=== PATIENT | female | born 1970 | race Caucasian/White ===

== ENCOUNTER 2018-04-02 11:50 | Emergency (ER) | payer OTHER ==
--- OUTSIDE RECORDS SUMMARY | 2018-04-02 11:52 | XMS REPORT ---
:1970 [facility] Address [address] [place] [address] Dr. Alonzo [address] [place] [id number] Care Team Providers Name Role Phone Unavailable Unavailable Unavailable Problems This patient has no known problems. Allergies, Adverse Reactions, Alerts This patient has no known allergies or adverse reactions. Medications This patient has no known medications.
[2018-04-02] MEDS ORDERED: NA CHLORIDE 0.9% 500 ML ONE (12:37)
[2018-04-02] MEDS ORDERED: ONDANSETRON 4 MG/2 ML VIAL ONE (12:37)
[2018-04-02 13:10] LABS: Absolute Lymphocytes (CBC) 1.9 K/uL (0.7-4.9); Absolute Monocytes 0.4 K/uL (0.1-1.3); Basophils % 0.2 % (0-1.3); Eosinophils % 0.2 % (0-4.4); Hematocrit 43.6 % (36.0-45.0); Lymphocytes % 22.8 % (15.3-44.8); MPV 7.9 fL (7.6-11.3); Monocytes % 4.4 % (3.3-12.3); RBC Red Blood Cell Count 5.05 M/uL (3.86-4.86)
[2018-04-02] MEDS ORDERED: PROMETHAZINE 25 MG/ML VIAL ONE (13:33)
[2018-04-02 13:42] LABS: ALT/SGPT 24 U/L (12-78); AST/SGOT 22 U/L (15-37); Albumin 4.7 g/dL (3.4-5.0); Alkaline Phosphatase 126 U/L (45-117); BUN Blood Urea Nitrogen 8 mg/dL (7-18); Bicarbonate 26 mmol/L (21-32); Bilirubin Direct < 0.1 mg/dL (0-0.2); Bilirubin Total 0.3 mg/dL (0.2-1.0); Glucose Level 109 mg/dL (74-106); Lipase 71 U/L (73-393); Potassium 4.4 mmol/L (3.5-5.1); Protein, Total 8.6 g/dL (6.4-8.2); Sodium Level 139 mmol/L (136-145)
[2018-04-02 14:21] LABS: Urine Blood TRACE (NEG); Urine Glucose NEGATIVE (NEG); Urine Protein NEGATIVE (NEG); Urine Specific Gravity 1.015 (1.005-1.030)
--- NOTE | 2018-04-02 15:37 | RAD REPORT ---
EXAM DESCRIPTION: CT - Abdomen Pelvis Wo Contrast - 04/02/2018 3:02 pm CLINICAL HISTORY: Abdominal pain. Abd pain;Constipation;Nausea / vomiting COMPARISON: CT ABD PELVIS W CONTRAST dated 10/16/2011; CTANGIO CHEST FOR PE dated 01/06/2010; CT ABD PELVIS W WO CONTRAST dated 02/27/2010 TECHNIQUE: CT imaging of the abdomen and pelvis was performed without contrast. Solid organ and vasc ular assessment is limited due to lack of IV contrast. All CT scans are performed using dose optimization technique as appropriate and may include automated exposure control or mA/KV adjustment according to patient size. FINDINGS: 8 mm noncalcified nodule partially visualized is present in the left lung base. Small subp leural 2 mm nodule also present left base laterally. The liver, spleen, pancreas, adrenal glands and kidneys are within normal limits for a limited non-co ntrast examination.Cholecystectomy clips. No bowel obstruction, free air, free fluid or abscess. 2.9 cm rounded soft tissue lesion is seen the base of the cecum. The appendix is absent. The osseous structures are within normal limits. IMPRESSION: No acute intra-abdominal or pelvic findings. 2.9 cm rounded soft tissue lesion at the base of the cecum noted. Advise followup direct visualizatio n with colonoscopy. Tiny nodules are seen in the lung bases, incompletely assessed. Dedicated nonemergent CT chest follow up would be helpful. A limited non-contrast examination was performed as detailed.
--- NOTE | 2018-04-02 15:44 | ER ---
Nurse's Notes [facility] Name: Deann Avitia Age: 47 yrs Sex: Female : 1970 Arrival Date: 04/02/2018 Time: 11:53 Bed 7 Private MD: Judy Canales Diagnosis: Unspecified abdominal pain Presentation: 04/02 12:02 Presenting complaint: Patient states: Upper abdominal pain for 8 months with nausea and aj "dry heaves". Patient reports she is able to hold down food and liquids. Patient has seen TILE TRIMMER, Urology, and had appointment with GI today at 1300 but felt that she could not wait. Transition of care: patient was not received from another setting of care. Onset of symptoms was July 2017. Risk Assessment: Do you want to hurt yourself or someone else? Patient reports no desire to harm self or others. Initial Sepsis Screen: Does the patient meet any 2 criteria? No. Patient's initial sepsis screen is negative. Does the patient have a suspected source of infection? No. Patient's initial sepsis screen is negative. Care prior to arrival: None. 12:02 Method Of Arrival: Ambulatory 12:02 Acuity: JHONATHAN 3 aj Triage Assessment: 12:07 General: Appears in no apparent distress. comfortable, Behavior is calm, cooperative, aj appropriate for age. Pain: Complains of pain in epigastric area, right upper quadrant and left upper quadrant. Neuro: Level of Consciousness is awake, alert, obeys commands, Oriented to person, place, time, situation, Appropriate for age. Respiratory: Airway is patent Respiratory effort is even, unlabored, Respiratory pattern is regular, symmetrical. GI: Reports upper abdominal pain, nausea. Derm: Skin is intact, is healthy with good turgor, Skin is pink, warm \\T\\ dry. normal. TILE TRIMMER: 12:07 LMP N/A - Hysterectomy aj Historical: - Allergies: 12:07 Ultram; aj 12:07 Naproxen; aj 12:07 Lyrica; aj 12:07 gabapentin; aj - Home Meds: 12:07 Morphabond ER every 8 hours [Active]; Plaquenil 200 mg Oral tab 1 tab once daily aj [Active]; Mobic 15 mg oral tab 1 tab once daily [Active]; tizanidine 4 mg oral cap twice a day [Active]; Zoloft 100 mg Oral tab 1 tab once daily [Active]; Wellbutrin XL 300 mg Oral Tb24 1 tab once daily [Active]; Ambien 10 mg Oral tab 1 tab once daily [Active]; Lamictal 200 mg Oral tab 1 tab once daily [Active]; - PMHx: 12:07 Fibromyalgia; Chronic pain; aj - PSHx: 12:07 Knee surgery; Appendectomy; Cholecystectomy; Hysterectomy; aj - Immunization history:: Adult Immunizations up to date. - Social history:: Smoking status: Patient uses tobacco products, smokes one-half pack cigarettes per day. - Ebola Screening: : Patient negative for fever greater than or equal to 101.5 degrees Fahrenheit, and additional compatible Ebola Virus Disease symptoms Patient denies exposure to infectious person Patient denies travel to an Ebola-affected area in the 21 days before illness onset No symptoms or risks identified at this time. - Family history:: not pertinent. - Hospitalizations: : No recent hospitalization is reported. Screenin:45 Abuse screen: Denies threats or abuse. Denies injuries from another. Nutritional hb screening: No deficits noted. Tuberculosis screening: No symptoms or risk factors identified. Fall Risk None identified. Assessment: 12:45 General: Appears in no apparent distress. Behavior is calm, cooperative. Pain: Pain hb currently is 8 out of 10 on a pain scale. Neuro: Level of Consciousness is awake, alert, obeys commands, Oriented to person, place, time, situation. Cardiovascular: Capillary refill < 3 seconds Patient's skin is warm and dry. Respiratory: Airway is patent Respiratory effort is even, unlabored, Respiratory pattern is regular, symmetrical, Breath sounds are clear bilaterally. GI: Abdomen is obese, Bowel sounds present X 4 quads. Abd is soft X 4 quads Abdomen is tender to palpation X 4 quads. Reports lower abdominal pain, upper abdominal pain, constipation, nausea. : No signs and/or symptoms were reported regarding the genitourinary system. EENT: No signs and/or symptoms were reported regarding the EENT system. Derm: Skin is intact, is healthy with good turgor, Skin is pink, warm \\T\\ dry. Musculoskeletal: No signs and/or symptoms reported regarding the musculoskeletal system. 13:08 Reassessment: Pt c/o abdominal pain 10/05, Dr. Workman notified, no new orders at thsis hb time. 13:48 Reassessment: Pt requesting pain medication, c/o pain 10/05. Dr. Workman notified, no new hb orders at this time. 14:15 Reassessment: Patient appears in no apparent distress at this time. Patient and/or hb family updated on plan of care and expected duration. Pain level reassessed. Patient is alert, oriented x 3, equal unlabored respirations, skin warm/dry/pink. 15:30 Reassessment: Patient appears in no apparent distress at this time. Patient and/or hb family updated on plan of care and expected duration. Pain level reassessed. Patient is alert, oriented x 3, equal unlabored respirations, skin warm/dry/pink. Vital Signs: 12:07 BP 150 / 107; Pulse 115; Resp 20; Temp 97.6; Pulse Ox 96% on R/A; Weight 93.44 kg; aj Height 5 ft. 2 in. (157.48 cm); 12:07 Body Mass Index 37.68 (93.44 kg, 157.48 cm) ED Course: 11:53 Patient arrived in ED. dl4 11:53 Judy Canales MD is Private Physician. dl4 12:04 Triage completed. aj 12:07 Arm band placed on right wrist. Patient placed in an exam room. aj 12:09 Feliberto Workman MD is Attending Physician. rn 12:45 Patient has correct armband on for positive identification. Placed in gown. Bed in low hb position. Call light in reach. Side rails up X 1. 13:02 Inserted saline lock: 22 gauge in right forearm, using aseptic technique. hb 13:08 Cristela Jacobs, RN is Primary Nurse. hb 14:46 Radiology exam delayed due to IV insertion attempt and/or patient not having vm2 appropriate IV at this time. 15:03 Abdomen In Process Unspecified. EDMS 15:43 Leslye Mathis MD is Referral Physician. rn 16:16 No provider procedures requiring assistance completed. IV discontinued, intact, hb bleeding controlled, No redness/swelling at site. Pressure dressing applied. Administered Medications: 13:08 Drug: Zofran 4 mg Route: IVP; Site: right forearm; hb 13:30 Follow up: Response: No adverse reaction hb 13:09 Drug: NS 0.9% 500 ml Route: IV; Rate: bolus; Site: right forearm; hb 13:45 Follow up: Response: No adverse reaction; IV Status: Completed infusion hb Outcome: 15:44 Discharge ordered by . rn 16:16 Discharged to home ambulatory. 16:16 Condition: stable 16:16 Discharge instructions given to patient, Instructed on discharge instructions, follow up and referral plans. medication usage, Demonstrated understanding of instructions, follow-up care, medications. 16:17 Patient left the ED. Signatures: Dispatcher [employer] Rema Al, RN Feliberto Salter MD MD rn Baxter, Heather, RN RN hb McGuire, Victoria 2 Tariq Drew dl4
--- NOTE | 2018-04-02 15:45 | EDPHYS ---
Physician Documentation [facility] Name: Deann Avitia Age: 47 yrs Sex: Female : 1970 Arrival Date: 04/02/2018 Time: 11:53 Bed 7 Private MD: Judy Canales ED Physician Feliberto Workman HPI: 04/02 12:29 This 47 yrs old Female presents to ER via Ambulatory with complaints of rn Abdominal Pain. 12:29 The patient presents with abdominal pain in the lower abdomen. Onset: The rn symptoms/episode began/occurred 8 month(s) ago. The symptoms do not radiate. Associated signs and symptoms: Pertinent positives: constipation, nausea, Pertinent negatives: anorexia, blood in stools, diarrhea, fever. The symptoms are described as crampy. Modifying factors: The symptoms are alleviated by nothing, the symptoms are aggravated by nothing. Severity of pain: At its worst the pain was mild in the emergency department the pain is unchanged. The patient has experienced similar episodes in the past, chronically. Reports 8 months of lower abd pain, moves to upper abdomen, cleared by [facility] and Urology, was supposed to go see GI today, in 1 hour but states couldn't wait so came here and canceled her appt. Reports nausea and constipation. Last BM 2 days ago. Is passing gas. . 12:29 Also on chronic pain medication.. 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 LMP N/A - Hysterectomy aj Historical: - Allergies: 12:07 Ultram; aj 12:07 Naproxen; aj 12:07 Lyrica; aj 12:07 gabapentin; aj - Home Meds: 12:07 Morphabond ER every 8 hours [Active]; Plaquenil 200 mg Oral tab 1 tab once daily aj [Active]; Mobic 15 mg oral tab 1 tab once daily [Active]; tizanidine 4 mg oral cap twice a day [Active]; Zoloft 100 mg Oral tab 1 tab once daily [Active]; Wellbutrin XL 300 mg Oral Tb24 1 tab once daily [Active]; Ambien 10 mg Oral tab 1 tab once daily [Active]; Lamictal 200 mg Oral tab 1 tab once daily [Active]; - PMHx: 12:07 Fibromyalgia; Chronic pain; aj - PSHx: 12:07 Knee surgery; Appendectomy; Cholecystectomy; Hysterectomy; aj - Immunization history:: Adult Immunizations up to date. - Social history:: Smoking status: Patient uses tobacco products, smokes one-half pack cigarettes per day. - Ebola Screening: : Patient negative for fever greater than or equal to 101.5 degrees Fahrenheit, and additional compatible Ebola Virus Disease symptoms Patient denies exposure to infectious person Patient denies travel to an Ebola-affected area in the 21 days before illness onset No symptoms or risks identified at this time. - Family history:: not pertinent. - Hospitalizations: : No recent hospitalization is reported. ROS: 12:29 Constitutional: Negative for fever, chills, and weight loss, Eyes: Negative for injury, rn pain, redness, and discharge, Cardiovascular: Negative for chest pain, palpitations, and edema, Respiratory: Negative for shortness of breath, cough, wheezing, and pleuritic chest pain, Abdomen/GI: Negative for vomiting, diarrhea MS/Extremity: Negative for injury and deformity, Skin: Negative for injury, rash, and discoloration, Neuro: Negative for headache, weakness, numbness, tingling, and seizure. Exam: 12:29 Constitutional: This is a well developed, well nourished patient who is awake, alert, rn and in no acute distress. Head/Face: Normocephalic, atraumatic. ENT: dry MM, no stridor Cardiovascular: Regular rate and rhythm with a normal S1 and S2. No gallops, murmurs, or rubs. Normal PMI, no JVD. No pulse deficits. Respiratory: Lungs have equal breath sounds bilaterally, clear to auscultation and percussion. No rales, rhonchi or wheezes noted. No increased work of breathing, no retractions or nasal flaring. Abdomen/GI: soft, mild periumbilical and suprapubic tenderness, no rebound/peritoneal signs Skin: Warm, dry MS/ Extremity: Pulses equal, no cyanosis. Neurovascular intact. Full, normal range of motion. Equal circumference. Neuro: Awake and alert, GCS 15, oriented to person, place, time, and situation. Cranial nerves II-XII grossly intact. Motor strength 5/5 in all extremities. Sensory grossly intact. Vital Signs: 12:07 BP 150 / 107; Pulse 115; Resp 20; Temp 97.6; Pulse Ox 96% on R/A; Weight 93.44 kg; aj Height 5 ft. 2 in. (157.48 cm); 12:07 Body Mass Index 37.68 (93.44 kg, 157.48 cm) aj MDM: 12:09 Patient medically screened. rn 15:39 Differential diagnosis: diverticulitis, gastroesophageal reflux disease, non-specific rn abd pain, Peptic Ulcer Disease, urinary tract infection. Data reviewed: vital signs, nurses notes, lab test result(s), radiologic studies, CT scan, and as a result, I will discharge patient. Counseling: I had a detailed discussion with the patient and/or guardian regarding: the historical points, exam findings, and any diagnostic results supporting the discharge/admit diagnosis, lab results, radiology results, the need for outpatient follow up, to return to the emergency department if symptoms worsen or persist or if there are any questions or concerns that arise at home. Response to treatment: the patient's symptoms have mildly improved after treatment, and as a result, I will discharge patient. Special discussion: Based on the patient's Hx, exam, and Dx evaluation, there is no indication for emergent surgery or inpatient Tx. It is understood by the patient/guardian that if the Sx's persist or worsen they need to return immediately for re-evaluation. I discussed with the patient/guardian in detail that at this point there is no indication for admission to the hospital. It is understood, however, that if the symptoms persist or worsen the patient needs to return immediately for re-evaluation. Based on the history and exam findings, there is no indication for further emergent testing or inpatient evaluation. I discussed with the patient/guardian the need to see the marble mason for further evaluation of the symptoms. 15:45 Special discussion: I discussed with the patient the need to follow-up with the rn PCP/specialist for the noted incidental finding on X-ray/CT scanning. 04/02 12:21 Order name: Basic Metabolic Panel; Complete Time: 15:28 rn 04/02 12:21 Order name: CBC with Diff; Complete Time: 15:28 rn 04/02 12:21 Order name: Hepatic Function; Complete Time: 15:28 rn 04/02 12:21 Order name: Lipase; Complete Time: 15:28 rn 04/02 14:09 Order name: Urine Dipstick--Ancillary (enter results); Complete Time: 15:28 bd 04/02 12:21 Order name: IV Saline Lock; Complete Time: 13: rn 04/02 12:21 Order name: Labs collected and sent; Complete Time: 13: rn 04/02 14:51 Order name: Abdomen ; Complete Time: 15:39 EDMS Administered Medications: 13:08 Drug: Zofran 4 mg Route: IVP; Site: right forearm; hb 13:30 Follow up: Response: No adverse reaction hb 13:09 Drug: NS 0.9% 500 ml Route: IV; Rate: bolus; Site: right forearm; hb 13:45 Follow up: Response: No adverse reaction; IV Status: Completed infusion hb Disposition: 04/02/18 15:44 Discharged to Home. Impression: Unspecified abdominal pain. - Condition is Stable. - Discharge Instructions: Abdominal Pain, Adult. - Medication Reconciliation Form, Thank You Letter, Antibiotic Education, Prescription Opioid Use form. - Follow up: Leslye Mathis MD; When: As needed; Reason: Recheck today's complaints, Re-evaluation by your physician. - Problem is chronic. - Symptoms have improved. Signatures: Dispatcher [employer] [facility] Rema Herndon RN RN aj Nieto, Roman, MD MD rn Baxter, Heather, RN RN Corrections: (The following items were deleted from the chart) 14:51 12:22 Abdomen Pelvis W Con+CT.RAD.BRZ ordered. [facility] 16:17 15:44 04/02/2018 15:44 Discharged to Home. Impression: Unspecified abdominal pain. hb Condition is Stable. Forms are Medication Reconciliation Form, Thank You Letter, Antibiotic Education, Prescription Opioid Use. Follow up: Leslye Mathis; When: As needed; Reason: Recheck today's complaints, Re-evaluation by your physician. Problem is chronic. Symptoms have improved. rn
[2018-04-02 17:14] VITALS: BP 150/107; TEMP 97.6; O2SAT 96
== END 2018-04-02 16:17 | disposition home or self-care (01) ==
LOC: ER 11:50
DX: R10.30 Lower abdominal pain, unspecified (principal); M79.7 Fibromyalgia; Z88.6 Allergy status to analgesic agent; Z88.1 Allergy status to other antibiotic agents; Z88.8 Allergy status to other drugs, medicaments and biological substances
CPT/HCPCS: 36415; 74176; 80048; 80076; 81003; 83690; 85025; 96361; 96374; 99283; J2405; J2550

== ENCOUNTER 2020-11-05 10:40 | Emergency (ER) | payer OTHER ==
--- OUTSIDE RECORDS SUMMARY | 2020-11-05 10:44 | XMS REPORT | Continuity of Care Document ---
:1970 Author Organization [facility] t Address [address] [place] [address] Care Team Providers Name Role Phone Lab, Fam Pob I Attending Clinician Unavailable Doctor Unassigned, Name Attending Clinician Unavailable Payers Payer Name Policy Type Policy Number Effective Date Expiration Date S ource Problems This patient has no known problems. Allergies, Adverse Reactions, Alerts Allergy Allergy Status Severity Reaction(s) Onset Inactive Treating Comm ents Source Name Type Date Date Clinician tramadol DA Active [facility] 04[facility] gab[facility]ent [facility] in 04-01 00:[facility] ondans[facility] 04-01 [facility] ketorola DA Active [facility] 2020-0 [facility] c 2- [place] 00:[facility]: [facility] pregabal DA Active [facility] 2020-0 [facility] in 2- [place] 00:00: [facility] tramadol DA Active SV 2020- [facility] 0-02 [place] 00:00: Li 00 [facility] gabapent DA Active SV 2020- [facility] in 0-02 Clear 00:00: Li 00 [facility] ondanset DA Active [facility] 2020-1 [facility] rj 0-02 [place] 00:00: Li 00 [facility] ketorola DA Active SV 2019- [facility] c 0-02 [place] 00:00: Li 00 [facility] pregabal DA Active SV 2019- [facility] in 0-02 Clear 00:00: Li 00 [facility] ondanset DA Active [facility] 2019-0 [facility] rj 9- [place] 00:00: [facility] tramadol DA Active [facility] 2019-0 [facility] - 00:00: [facility] gabapent DA Active [facility] 2019-0 [facility] in 07-29 00:00: Orthope [facility] ketorola DA Active SV 2019-0 [facility] c - 00:00: [facility] pregabal DA Active [facility] 2019-0 [facility] in 07-29 00:00: [facility] theophyl DA Active U 2011-0 [facility] line 3-25 [place] 00:00: [facility] guaifene DA Active U 2011-0 [facility] sin 3-25 [place] 00:00: [facility] Medications This patient has no known medications. Procedures This patient has no known procedures. Encounters Start End Encounter Admission Attending Care Care Encounter Source Date/Time Date/Time Type Type Clinicians Facility Department ID 2020-03-27 2020-03-27 Laboratory Lab, [facility] [id number] 12:45:43 13:05:43 Only Fam Pob I Health [id number] [place] 4.2.7.2.686 Professio [phone] nal 044 Office Building One 2019-12-26 2019-12-26 Orders Doctor ELIA [id number] 00:00:00 00:00:00 Only Unassigned, GRICELDA 350.1.13.10 [place] [facility] 4.2.7.2.686 [phone] [id number] 2019-09-16 2019-09-16 Laboratory Lab, [facility] [id number] 10:00:02 10:03:40 Only Fam Pob I Health [id number] [place] 4.2.7.2.686 Professio [phone] nal 044 Office Building One Results Test Description Test Time Test Comments Results Result [facility] e Comments - CT HEAD/BRAIN 2020-05-21 W/O CONT 13:40:00 [facility] : 1970 Sex: F Patient Name: JOHNSON ARREGUIN Unit No: [id number] EXAMS: CPT CODE: [id number] CT HEAD/BRAIN W/O CONT 50575 DIAGNOSIS: No evidence for hematoma or fracture. COMMENT: COMPARISON: No prior exams available. Scans were performed with thin sections and reconstructions were obtained. CT radiation dose optimization is achieved for this examination by the use of a CT protocol in accordance with ACR practice standards and adherence to spot machine operator's recommendations. There is no evidence for intra or extra-axial mass lesion or fluid collection. There is mild focal frontal atrophy. The ventricular size is within normal limits. There is no evidence for mass effect or midline shift. There is no evidence for hemorrhage. at 1340 Reported and signed by: Josep Ding MD CC: Fidencio Cote MD Technologist: Kayode Matson,RT(R) CTDI: DLP: Trnscrpt: 05/21/2020 (6586) Stephane [facility] NAME: JOHNSON ARREGUIN [address] [facility] PHYS: Fidencio Alvaradoean Jose Ramon : 1970 AGE: 49 SEX: F [place], [place] [address] LOC: Y.RAD PHONE #: [phone] EXAM DATE: 05/21/2020 STATUS: REG CLI FAX #: [phone] RAD #: D/C DT PAGE 1 Signed Report Patient Name: JOHNSON ARREGUIN Unit No: [id number] EXAMS: CPT CODE: [id number] CT HEAD/BRAIN W/O CONT 74763 <Continued> Orig Print D/T: S: 05/21/2020 (7613) [facility] NAME: JOHNSON ARREGUIN [address] [place] [address] PHYS: KEVIN Fidencio Coteean Jose Ramon : 1970 AGE: 49 SEX: F [place] [address] LOC: Y.RAD PHONE #: [phone] EXAM DATE: 05/21/2020 STATUS: REG CLI FAX #: [phone] RAD #: D/C DT PAGE 2 Signed Report BASIC METABOLIC PANEL 2020-04-02 06:22:00 Test Item Value Reference Range Interpretation Comme nts SODIUM (test code = NA) 141 mmol/L 136-145 N POTASSIUM (test code = K) 4.3 mmol/L 3.5-5.1 N CHLORIDE (test code = CL) 103.0 mmol/L 98-107 N CARBON DIOXIDE (test code = 23.5 mmol/L 21-32 N CO2) GLUCOSE (test code = GLU) 166 mg/dL 70-110 H BLOOD UREA NITROGEN (test code 8 mg/dL 7-18 N = BUN) GLOMERULAR FILTRATION RATE 80.4 >60 U nit of measure: (test code = GFR) mL/min/1.7 3 [id number] Range:Healthy A dults >90 mL/min/1.73 m2 For Chronic Kidney Disease: Stage II Mi ld Decrease in GFR 60-9 0 Stage III Moderate Decrease in GFR 30-59 Stage IV Severe Decrease in GFR 15-29 Stage V Kidney Failure <15 CREATININE (test code = CREAT) 0.77 mg/dL 0.55-1.30 N CALCIUM (test code = CA) 9.0 mg/dL 8.2-10.1 N HGB [id number] 05:51:00 Test Item Value Reference Range Interpretation Comments HEMOGLOBIN (test code = HGB) 12.0 g/dL 12-16 N HEMATOCRIT (test code = HCT) 36.9 % 37-47 L PROTHROMBIN [id number] 09:40:00 Test Item Value Reference Range Interpretation Comments PROTHROMBIN TIME 11.0 secs 10.1-12.5 N PATIENT (test code = PTP) INTERNATIONAL NORMAL 0.96 <2.0 RECOMME NDED THERAPEUTIC RATIO (test code = RANGE FOR ORAL INR) ANTICOAGULANTTR EATMENT: CONDI TION INRProphylaxis of venous thrombos is in 2.0 - 3.0 high-risk medic al or surgical patientsTreatme nt of venous thrombos is 2.0 - 3.0Prevention o f embolism 2.0 - 3.0Prevention o f recurrent embol ism, or 3.0 - 4. 5 patients with mechanical pros thetic intravascular v polanco THROMBOPLASTIN TIME [id number] 09:40:00 Test Item Value Reference Range Interpretation Comments PTT ACTIVATED (test code = APTT) 26.8 secs 24.9-37.0 N BASIC METABOLIC [id number] 09:15:00 Test Item Value Reference Range Interpretation Comments SODIUM (test code = 142 mmol/L 136-145 N NA) POTASSIUM (test code = 4.3 mmol/L 3.5-5.1 N K) CHLORIDE (test code = 101.0 mmol/L 98-107 N CL) CARBON DIOXIDE (test 31.1 mmol/L 21-32 N code = CO2) GLUCOSE (test code = 113 mg/dL 70-110 H GLU) BLOOD UREA NITROGEN 10 mg/dL 7-18 N (test code = BUN) GLOMERULAR FILTRATION 53.2 >60 Unit o f measure: RATE (test code = GFR) mL/mi n/1.73 [id number] Range:Healthy Adults >90 mL/min/1.73 m2 For Chronic Kidney Disease: St age II Mild Decrease in GFR 60-90 St age III Moderate Decrease in GFR 30-59 Stage IV Severe Decre ase in GFR 15- 29 Stage V Kidney Failure <15 CREATININE (test code 1.10 mg/dL 0.55-1.30 N = CREAT) CALCIUM (test code = 9.4 mg/dL 8.2-10.1 N CA) CBC W/AUTO [id number] 09:11:00 Test Item Value Reference Range Interpretation Comments WHITE BLOOD CELL (test code = WBC) 6.4 K/mm3 5.8-11.0 N RED BLOOD CELL (test code = RBC) 4.35 M/mm3 4.2-5.4 N HEMOGLOBIN (test code = HGB) 12.9 g/dL 12-16 N HEMATOCRIT (test code = HCT) 38.5 % 37-47 N MEAN CELL VOLUME (test code = MCV) 89 fL 80-98 N MEAN CELL HGB (test code = MCH) 29.7 pg 27-34 N MEAN CELL HGB CONCENTRATION (test 33.5 g/dL 30.8-34.1 N code = MCHC) RED CELL DISTRIBUTION WIDTH (test 12.8 % 11-16 N code = RDW) PLT (test code = PLT) 268 K/mm3 130-400 N MEAN PLATELET VOLUME (test code = 9.6 fL 8.9-12.1 N MPV) NEUTROPHIL % (test code = NT%) 57.4 % 45-70 N LYMPHOCYTE % (test code = LY%) 34.6 % 20-40 N MONOCYTE % (test code = MO%) 6.1 % 3-10 N EOSINOPHIL % (test code = EO%) 1.1 % 1-5 N BASOPHIL % (test code = BA%) 0.3 % 0.0-1.1 N NEUTROPHIL # (test code = NT#) 3.66 K/mm3 2.00-7.50 N LYMPHOCYTE # (test code = LY#) 2.21 K/mm3 1.50-4.00 N MONOCYTE # (test code = MO#) 0.39 K/mm3 0.2-0.8 N EOSINOPHIL # (test code = EO#) 0.07 K/mm3 0.04-0.4 N BASOPHIL # (test code = BA#) 0.02 K/mm3 0.02-0.10 N MANUAL DIFF REQUIRED (test code = NO MANUAL DIFF MDIFF) NUCLEATED RED BLOOD CELL (test 0 % 0-0 N code = NRBC) CBC W/AUTO [id number] 14:28:00 Test Item Value Reference Range Interpretation Comments WHITE BLOOD CELL (test code = WBC) 6.3 K/mm3 5.8-11.0 N RED BLOOD CELL (test code = RBC) 4.08 M/mm3 4.2-5.4 L HEMOGLOBIN (test code = HGB) 12.1 g/dL 12-16 N HEMATOCRIT (test code = HCT) 36.1 % 37-47 L MEAN CELL VOLUME (test code = MCV) 89 fL 80-98 N MEAN CELL HGB (test code = MCH) 29.7 pg 27-34 N MEAN CELL HGB CONCENTRATION (test 33.5 g/dL 30.8-34.1 N code = MCHC) RED CELL DISTRIBUTION WIDTH (test 12.7 % 11-16 N code = RDW) PLT (test code = PLT) 325 K/mm3 130-400 N MEAN PLATELET VOLUME (test code = 10.0 fL 8.9-12.1 N MPV) NEUTROPHIL % (test code = NT%) 55.0 % 45-70 N LYMPHOCYTE % (test code = LY%) 38.3 % 20-40 N MONOCYTE % (test code = MO%) 5.1 % 3-10 N EOSINOPHIL % (test code = EO%) 1.0 % 1-5 N BASOPHIL % (test code = BA%) 0.3 % 0.0-1.1 N NEUTROPHIL # (test code = NT#) 3.44 K/mm3 2.00-7.50 N LYMPHOCYTE # (test code = LY#) 2.40 K/mm3 1.50-4.00 N MONOCYTE # (test code = MO#) 0.32 K/mm3 0.2-0.8 N EOSINOPHIL # (test code = EO#) 0.06 K/mm3 0.04-0.4 N BASOPHIL # (test code = BA#) 0.02 K/mm3 0.02-0.10 N MANUAL DIFF REQUIRED (test code = NO MANUAL DIFF MDIFF) NUCLEATED RED BLOOD CELL (test 0 % 0-0 N code = NRBC) BASIC METABOLIC [id number] 17:05:00 Test Item Value Reference Range Interpretation Comments SODIUM (test code = 138 mmol/L 136-145 N NA) POTASSIUM (test code = 4.4 mmol/L 3.5-5.1 N K) CHLORIDE (test code = 100.0 mmol/L 98-107 N CL) CARBON DIOXIDE (test 29.4 mmol/L 21-32 N code = CO2) GLUCOSE (test code = 88 mg/dL 70-110 N GLU) BLOOD UREA NITROGEN 9 mg/dL 7-18 N (test code = BUN) GLOMERULAR FILTRATION 64.6 >60 Unit o f measure: RATE (test code = GFR) mL/mi n/1.73 [id number] Range:Healthy Adults >90 mL/min/1.73 m2 For Chronic Kidney Disease: St age II Mild Decrease in GFR 60-90 St age III Moderate Decrease in GFR 30-59 Stage IV Severe Decre ase in GFR 15- 29 Stage V Kidney Failure <15 CREATININE (test code 0.93 mg/dL 0.55-1.30 N = CREAT) CALCIUM (test code = 9.2 mg/dL 8.2-10.1 N CA) PROTHROMBIN [id number] 16:11:00 Test Item Value Reference Range Interpretation Comments PROTHROMBIN TIME 11.5 secs 10.1-12.5 N PATIENT (test code = PTP) INTERNATIONAL NORMAL 1.03 <2.0 RECOMME NDED THERAPEUTIC RATIO (test code = RANGE FOR ORAL INR) ANTICOAGULANTTR EATMENT: CONDI TION INRProphylaxis of venous thrombos is in 2.0 - 3.0 high-risk medic al or surgical patientsTreatme nt of venous thrombos is 2.0 - 3.0Prevention o f embolism 2.0 - 3.0Prevention o f recurrent embol ism, or 3.0 - 4. 5 patients with mechanical pros thetic intravascular v polanco IS PATIENT ON ANTICOAGULANTS ? WYas Lab been notified if Patient is on Heparin Drip? NOIf Yes, orderCBC, OCCULT BLOOD, PT every other day NTHROMBOPLASTIN TIME [id number] 16:11:00 Test Item Value Reference Range Interpretation Comments PTT ACTIVATED (test code = APTT) 38.1 secs 24.9-37.0 H IS PATIENT ON ANTICOAGULANTS ? NHas Lab been notified if Patient is on Heparin Drip? NOIf Yes, orderCBC, OCCULT BLOOD, PT every other day NCBC W/AUTO DIFF 2019-11-28 12:50:00 Test Item Value Reference Range Interpretation Comments WHITE BLOOD CELL (test code = WBC) 5.9 K/mm3 5.8-11.0 N RED BLOOD CELL (test code = RBC) 4.46 M/mm3 4.2-5.4 N HEMOGLOBIN (test code = HGB) 13.1 g/dL 12-16 N HEMATOCRIT (test code = HCT) 39.4 % 37-47 N MEAN CELL VOLUME (test code = MCV) 88 fL 80-98 N MEAN CELL HGB (test code = MCH) 29.4 pg 27-34 N MEAN CELL HGB CONCENTRATION (test 33.2 g/dL 30.8-34.1 N code = MCHC) RED CELL DISTRIBUTION WIDTH (test 12.6 % 11-16 N code = RDW) PLT (test code = PLT) 254 K/mm3 130-400 N MEAN PLATELET VOLUME (test code = 9.4 fL 8.9-12.1 N MPV) NEUTROPHIL % (test code = NT%) 50.5 % 45-70 N LYMPHOCYTE % (test code = LY%) 41.2 % 20-40 H MONOCYTE % (test code = MO%) 6.3 % 3-10 N EOSINOPHIL % (test code = EO%) 1.4 % 1-5 N BASOPHIL % (test code = BA%) 0.3 % 0.0-1.1 N NEUTROPHIL # (test code = NT#) 2.96 K/mm3 2.00-7.50 N LYMPHOCYTE # (test code = LY#) 2.42 K/mm3 1.50-4.00 N MONOCYTE # (test code = MO#) 0.37 K/mm3 0.2-0.8 N EOSINOPHIL # (test code = EO#) 0.08 K/mm3 0.04-0.4 N BASOPHIL # (test code = BA#) 0.02 K/mm3 0.02-0.10 N MANUAL DIFF REQUIRED (test code = NO MANUAL DIFF MDIFF) NUCLEATED RED BLOOD CELL (test 0 % 0-0 N code = NRBC) - MRI C-SPINE W/O [id number] 13:46:00 Patient Name: JOHNSON ARREGUIN Unit No: [id number] EXAMS: CPT CODE: [id number] MRI C-SPINE W/O CONT 14034 MRI OF THE CERVICAL SPINE: DIAGNOSIS: 1. At C2-3, mild disc degeneration. No central canal or foraminal stenosis. 2. At C3-4, disc desiccation. There is a 4 mm right posterior lateral right foraminal subligamentous disc herniation indenting the adjacent thecal sac. There may be associated impingement of the right R5bhddt root lateral gutter and possibly the right C4 nerve root as it enters the right neural foramen. Mild to moderate central canal stenosis. Moderate right foraminal and moderate tomarked left foraminal stenosis. 3. At C4-5, disc desiccation. No central canal stenosis. Mild bilateral foraminal stenosis. 4. At C5-6,mild disc degeneration. Nocentral canal stenosis. There appears to be a 4 mm left foraminal disc herniation possibly impinging the left C6 nerve root. Please correlate with the clinical examination. Moderate to marked left foraminal stenosis and mild right foraminal stenosis. 5. At C6-7, mild disc degeneration. Mild disc bulging. No central canal or foraminal stenosis.6. At C7-T1, no disc bulge or herniation. No central canal or foraminal stenosis. 7. Evaluation is extremely limited due to extensive motion artifact. Multiple repeat sequences were obtained with little improvement in regards to motion artifact. COMMENT: COMPARISON: No prior exams available. Sagittal T1, T2 and STIR and axial T2 and gradient-echo sequences are obtained of the cervical spine. Cervical vertebrae are within normal limits in signal. The findings are as above. at 1346 Reported and signedby: Barber Vargas MD CC: Fidencio Cote MD Technologist: Tawana Wheeler, RT(R) Transcribed D/ (4054) [email or web address] [facility] NAME: JOHNSON ARREGUIN [address] [facility] PHYS: Fidencio Alvarado : 1970 AGE: 49 SEX: F [place], [place] [address] LOC: Y.MRI PHONE #: [phone] EXAM DATE: 09/30/2019 STATUS: REG CLI FAX #: [phone] RAD #: D/C DT PAGE 1 Signed Report Patient Name: JOHNSON ARREGUIN Unit No: [id number] EXAMS: CPT CODE: [id number] MRI C-SPINE W/O CONT 26607 <Continued> Orig Print D/T: S: 09/30/2019 (1349) [facility] NAME: JOHNSON ARREGUIN [address] [facility] PHYS: Fidencio Alvarado : 1970 AGE: 49 SEX: F [place] [address] LOC: Y.MRI PHONE #: [phone] EXAM DATE: 09/30/2019 STATUS: REG CLI FAX #: [phone] RAD #:D/C DT PAGE 2 Signed Report- MRI L-SPINE W/O CONT 2019-08-13 15:01:00 Patient Name: JOHNSON ARREGUIN Unit No: [id number] EXAMS: CPT CODE: [id number] MRI L-SPINE W/O CONT 40047 DIAGNOSIS: 1. At L1-2 there is no evidence for disc bulge or herniation, bony canal or foraminal stenosis. 2. At L2-3 there is no evidence for disc bulge or herniation, bony canal or foraminal stenosis. 3. At L3-4 there is no evidence for discbulge or herniation, bony canal or foraminal stenosis. 4. At L4-5 there is no evidence for disc bulge or herniation. There is mild narrowing of the central canal with facet and ligamentum flavum hypertrophic and degenerative change. No foraminal narrowing is seen. 5. At L5-S1 there is no evidence for disc bulge or herniation. There is a possible right L5pars defect and CT with reconstruction is recommended in further evaluation if clinically indicated. Slight narrowing of the central canal is present with facet and ligamentum flavum hypertrophic and degenerative change. COMMENT: COMPARISON: No prior exams available. Scans were performed in the sagittal and axial planes utilizing T1, T2 and inversion recovery images. 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 The discs are mildly desiccated. Disc configurations are as described. Spondylitic changes are as noted. The conus is in the expected location. The description these findings assumes a normal count of 5 lumbar type vertebra. at 1501 Reported and signed by: Josep Ding MD CC: Fidencio Cote MD Technologist: ELROY JOSEPH MRI Transcribed D/ (0157) BobL [facility] NAME: JOHNSON ARREGUIN[address] [facility] PHYS: KEVIN UlloaFidencio moncada : 1970 AGE: 48 SEX: F [place] [address] LOC: Y.MRI PHONE #: [phone] EXAM DATE: 08/13/2019 STATUS: REG [place] #: [phone] RAD #: D/C DT PAGE 1 Signed Report Patient Name: JOHNSON ARREGUIN Unit No: [id number] EXAMS: CPT CODE: [id number] MRI L-SPINE W/O CONT 48770 <Continued> Orig Print D/T: S: 08/13/2019 (1003) [facility] NAME: JOHNSON ARREGUIN [address] [facility] PHYS: KEVIN CoteFidencio : 1970 AGE: 48 SEX: F [place] [address] LOC: Y.MRI PHONE #: [phone] EXAM DATE: 08/13/2019 STATUS: REG CLI FAX #: [phone] RAD #: D/C DT PAGE 2 Signed Report- MRI UPPER EX W/O CONT [id number] 08:30:00 Patient Name: JOHNSON ARREGUIN Unit No: [id number] EXAMS: CPT CODE: [id number] MRI UPPER EX W/[place] [address] MRI OF THE LEFT THUMB DIAGNOSIS: There is a cyst in the head of the 1st metacarpal on the radial side adjacent to the attachment of the radial collateral ligament. Mildly increased T2-weighted signal in the proximal radial collateral liga ment proximally consistent with a sprain without tearing. Also noted is a small effusion or synovitis in the interphalangeal joint. COMMENT: Scans were performed in the sagittal, coronal and axial planes utilizing T1-weighting and spin density with fat saturation. Bony abnormality is present as noted. A ligamentous sprain is present as described. No tendon tears are seen. No masses are identified. at 0830 Reported and signed by: Josep Ding MD CC: Nadir Perez MD Technologist: Tawana Wheeler, RT(R) Transcribed D/ (829) Stephane [facility] NAME: JOHNSON ARREGUIN [address] [facility] PHYS: Nadir Burnett MD : 1970 AGE: 48 SEX: F [place] [address] LOC: Y.MRI PHONE #: [phone] EXAM DATE: 03/12/2019 STATUS: DEP CLI FAX #: [phone] RAD #: D/C DT PAGE 1 Signed Report Patient Name: JOHNSON ARREGUIN Unit No: [id number] EXAMS: CPT CODE: [id number] [place]PP[place] W/[place] [address] <Continued> Orig Print D/T: S: 03/13/2019 (0833) [facility] NAME: JOHNSON ARREGUIN [address] [facility] PHYS: Nadir Burnett MD : 1970 AGE: 48 SEX: F [place] [address] LOC: Y.MRI PHONE #: [phone] EXAM DATE: 03/12/2019 STATUS: DEP CLI FAX #: [phone] RAD #: D/C DT PAGE 2 Signed Report- MRI UP JNT W/O CONT [id number] 08:47:00 Patient Name: JOHNSON ARREGUIN Unit No: [id number] EXAMS: CPT CODE: [id number] MRI UP JNT W/[place] [address] MR of the right shoulder without contrast TECHNIQUE: Paracoronal, parasagittal and axial multisequence images obtained. COMPARISON: None available. FINDINGS: Acromioclavicular joint: Mild degenerative changes. Rotator cuff: Jordan interstitial tear of the posterior supraspinatus insertion roberto ures 9 mm transversely and reaches high-grade (coronal T2 image 8). No significant tendon retraction. Infraspinatus and supraspinatus tendinosis is present. Rotator cuff musculature is normal in size and signal intensity. Long head biceps tendon: Intact. Labrum: Fluid signal within the superior labrum is complex in appearance, suspicious for a labral tear. Cartilage/ bone: No full thickness chondral defect. No acute fracture. Bone marrow signal is within normal limits. Other: No significant joint effusion. No intra-articular body. IMPRESSION: 1. High-grade interstitial tear of the posterior supraspinatus insertion. No retraction or muscle atrophy. 2. Probable superior labral tear. at 0847 Reported and signed by: Edilberto Mckeon M.D. CC: Osmani Bach MD Technologist: Tawana Wheeler, RT(R) Transcribed D/ (0847) [email or web address] [facility] NAME: JOHNSON ARREGUIN [address] [facility] PHYS: Osmani Nguyen MD : 1970 AGE: 47 SEX: F [place], [place] [address] LOC: Y.MRI PHONE #: [phone] EXAM DATE: 07/06/2018 STATUS: DEP CLI FAX #: [phone] RAD #: D/C DT PAGE 1 Signed Report Patient Name: JOHNSON ARREGUIN Unit No: [id number] EXAMS: CPT CODE: [id number] MRI UP JNT W/[place] [address] <Continued> Orig Print D/T: S: 07/08/2018 (0851) [facility] NAME: JOHNSON ARREGUIN [address] [facility] PHYS: Osmani Nguyen MD : 1970 AGE: 47 SEX: F [place] [address] LOC: Y.MRI PHONE #: [phone] EXAM DATE: 07/06/2018 STATUS: DEP CLI FAX #: [phone] RAD #: D/C DT PAGE 2 Signed Report
[2020-11-05] MEDS ORDERED: HYDROCODONE/APAP 5/325 MG TAB ONE (11:33)
--- NOTE | 2020-11-05 12:24 | RAD REPORT ---
EXAM DESCRIPTION: RAD - Ankle Left 3 View - 11/05/2020 12:16 pm CLINICAL HISTORY: Pain;Swelling COMPARISON: No comparisons FINDINGS: Obliquely oriented lucency in the distal fibular only seen on the ankle mortise view. The lucency extends to the tibiofibular syndesmosis. There is soft tissue swelling laterally. The ankle m ortise is congruent. IMPRESSION: Possible nondisplaced distal fibular fracture. CT could confirm if clinically indicated.
--- NOTE | 2020-11-05 14:51 | EDPHYS ---
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 - Social history:: Smoking status: Reported history of juuling and/or vaping. Vital Signs: 11:02 BP 102 / 81; Pulse 100; Resp 16; Temp 98.0; Pulse Ox 98% on R/A; Weight 97.52 kg; iw Height 5 ft. 2 in. (157.48 cm); Pain 12/05; 11:02 Body Mass Index 39.32 (97.52 kg, 157.48 cm) iw MDM: 14:50 Patient medically screened. kdr 11/05 10:51 Order name: Ankle Left 3 View XRAY; Complete Time: 14:45 iw 11/05 14:48 Order name: Splint Leg: Short Leg: Just below knee to distal TCP on injured leg; kdr Complete Time: 15:10 Administered Medications: No medications were administered Disposition Summary: 11/05/20 14:50 Discharge Ordered Location: Home kdr Problem: new kdr Symptoms: have improved kdr Condition: Stable kdr Diagnosis - Nondisplaced fracture of lateral malleolus of left fibula kdr Followup: kdr - With: Private Physician - When: 2 - 3 days - Reason: If symptoms return, Further diagnostic work-up, Recheck today's complaints, Continuance of care, Re-evaluation by your physician Discharge Instructions: - Discharge Summary Sheet kdr - Tibial and Fibular Fractures kdr Forms: - Medication Reconciliation Form kdr - Thank You Letter kdr - Prescription Opioid Use kdr - Work release form eb Prescriptions: - Tylenol-Codeine #3 300 mg-30 mg Oral - take 1 tablet by ORAL route every 6 hours As needed; 6 tablet; Refills: 0, kdr Product Selection Permitted Signatures: Dispatcher [employer] Andreas Duarte MD MD kdr Williams, Irene RN RN iw
--- NOTE | 2020-11-05 14:51 | ER ---
Nurse's Notes [facility] Name: Deann Avitia Age: 50 yrs Sex: Female : 1970 Arrival Date: 11/05/2020 Time: 10:47 Bed 9 Private MD: Diagnosis: Nondisplaced fracture of lateral malleolus of left fibula Presentation: 11/05 11:02 Chief complaint: Patient states: stepped off a curb and rolled her left ankle iw yesterday, pain and swelling was worse today. Coronavirus screen: At this time, the client does not indicate any symptoms associated with coronavirus-19. Ebola Screen: Patient negative for fever greater than or equal to 101.5 degrees Fahrenheit, and additional compatible Ebola Virus Disease symptoms Patient denies exposure to infectious person. Patient denies travel to an Ebola-affected area in the 21 days before illness onset. No symptoms or risks identified at this time. Initial Sepsis Screen: Does the patient meet any 2 criteria? No. Patient's initial sepsis screen is negative. Does the patient have a suspected source of infection? No. Patient's initial sepsis screen is negative. Risk Assessment: Do you want to hurt yourself or someone else? Patient reports no desire to harm self or others. Onset of symptoms was November 04, 2020. 11:02 Method Of Arrival: Wheelchair iw 11:02 Acuity: JHONATHAN 4 iw NEUROLOGIST: 15:00 LMP N/A - iw Historical: - Allergies: 11:03 GABAPENTIN; iw 11:03 Lyrica; iw 11:03 Naproxen; iw 11:03 Ultram; iw 11:03 tramadol; iw 11:03 Toradol; iw - PMHx: 11:03 Chronic pain; Fibromyalgia; iw - Immunization history:: Adult Immunizations Client reports having NOT received the Covid vaccine. - Social history:: Smoking status: Reported history of juuling and/or vaping. Screenin:40 Abuse screen: Denies threats or abuse. Denies injuries from another. Nutritional iw screening: No deficits noted. Tuberculosis screening: No symptoms or risk factors identified. Fall Risk Fall in past 12 months (25 points). Assessment: 14:40 General: Appears in no apparent distress. Behavior is calm, cooperative. Pain: iw Complains of pain in left lateral malleolus and dorsum of left foot. Neuro: Level of Consciousness is awake, alert, obeys commands, Oriented to person, place, time, situation, Moves all extremities. Musculoskeletal: Swelling present in left foot. Vital Signs: 11:02 BP 102 / 81; Pulse 100; Resp 16; Temp 98.0; Pulse Ox 98% on R/A; Weight 97.52 kg; iw Height 5 ft. 2 in. (157.48 cm); Pain 10; 11:02 Body Mass Index 39.32 (97.52 kg, 157.48 cm) iw ED Course: 10:47 Patient arrived in ED. ja2 11:03 Triage completed. iw 11:04 Arm band placed on. iw 12:15 Ankle Left 3 View XRAY In Process Unspecified. EDMS 14:39 Ciarra José, RN is Primary Nurse. iw 14:40 Patient has correct armband on for positive identification. iw 14:44 Andreas Talley MD is Attending Physician. kdr 15:04 Orthoglass splint: Posterior short lleg splint applied on left leg. capillary refill <3 dh3 seconds, viewed by Dr. Talley. 15:10 No provider procedures requiring assistance completed. Patient did not have IV access ss during this emergency room visit. Administered Medications: No medications were administered Outcome: 14:50 Discharge ordered by . kdr 15:10 Discharged to home ambulatory. ss 15:10 Condition: good 15:10 Discharge instructions given to patient, Instructed on discharge instructions, follow up and referral plans. medication usage, Demonstrated understanding of instructions, follow-up care, medications, Prescriptions given X 1. 15:10 Patient left the ED. ss Signatures: Dispatcher [employer] EDMS Andreas Talley MD MD [facility] Ciarra José, RN KRIS Macie Lorenzo RN RN Danita Pepper 3 Dory Lamb [facility]
[2020-11-05 15:17] VITALS: BP 102/81; TEMP 98; O2SAT 98
== END 2020-11-05 15:10 | disposition home or self-care (01) ==
LOC: ER 10:40
PROC: 2W3RX1Z Immobilization of Left Lower Leg using Splint (ICD-10-PCS; principal; 2020-11-05)
DX: S82.65XA Nondisplaced fracture of lateral malleolus of left fibula, initial encounter for closed fracture (principal); X58.XXXA Exposure to other specified factors, initial encounter; Y93.01 Activity, walking, marching and hiking; Y92.89 Other specified places as the place of occurrence of the external cause; Z88.5 Allergy status to narcotic agent; Z88.8 Allergy status to other drugs, medicaments and biological substances
CPT/HCPCS: 99283

== ENCOUNTER 2021-10-25 09:11 | Emergency (ER) | payer OTHER ==
--- OUTSIDE RECORDS SUMMARY | 2021-10-25 09:15 | XMS REPORT | Continuity of Care Document ---
:[address] [facility] t Address [address] [place] [address] Care Team Providers Name Role Phone Kartik Andigailjose Attending Clinician Unavailable Fidencio Cote Attending Clinician Unavailable JEANCARLOS CABRERA Attending Clinician Unavailable PEREZ IZQUIERDO Attending Clinician Unavailable URIEL PUCKETT Attending Clinician Unavailable Lab, Adc Fam Pob I Attending Clinician Unavailable GUANACO MONTERO Attending Clinician Unavailable UNKNOWN, ATTENDING Attending Clinician Unavailable FORTINO COLE Attending Clinician Unavailable Doctor Unassigned, [place] Attending Clinician Unavailable EVELYNE DAI Attending Clinician Unavailable BENNIE SANDOVAL Attending Clinician Unavailable Nadir Perez Attending Clinician Unavailable Darinel Pina Attending Clinician Jovon Springer Attending Clinician Talia Verdugo Admitting Clinician Unavailable Physician, No Primary or Family Admitting Clinician Unavaila ble NONE, NONE Admitting Clinician Unavailable Fidencio Cote Admitting Clinician Unavailable Payers Payer Name Policy Type Policy Number Effective Date Expiration Date Mela tomas [facility] [id number] 2012 00:00:00 Problems Condition Condition Condition Status Onset Resolution Last Treating Co mments Source Name Details Category Date Date Treatment Clinician Date ROTATOR ROTATOR Diagnosis Active 2012-06-12 Memoria CUFF TEAR CUFF TEAR 06-04 05:28:00 l Active 00:00: [place] 06/04/2012 00 [facility] Fibromyalg Problem Resolve 2012-06-14 Memoria ia Fibromyalg d 20:59:52 l ia [place] Resolved Problem 06/14/2012 [facility] Malignant Malignant Problem Active 2013-09-24 Memoria tumor of tumor of 23:26:27 l urinary urinary [place] bladder bladder (disorder) (disorder) Active Problem 09/24/2013 APARNA Raman, CAMRYN Vazquez,M H OPID [facility] depression depressio Problem Active 2013-09-24 Memoria (Confirmed n(Confirme 23:26:27 l ) d) Active [place] Problem 09/24/2013 APARNA Raman, CAMRYN Vazquez,M H OPID [facility] weakness weakness Problem Active 2013-09-24 Memoria both both 23:26:27 l legs(Confi legs(Confi He rmann rmed) rmed) Active Problem 09/24/2013 APARNA Raman, CAMRYN Vazquez,M H OPID [facility] Bladder Bladder Problem Active 2012-06-14 [facility] [place] cancer cancer 20:59:52 l Active [place] Problem 06/14/2012 [facility] depression Problem Active 2012-06-14 M emoria depression 20:59:52 l Active [place] Problem 06/14/2012 [facility] weakness weakness Problem Active 2012-06-14 Memoria both legs both legs 20:59:52 l Active [place] Problem 06/14/2012 [facility] Fibromyosi Fibromyos Problem Resolve 2013-09-24 Memoria tis itis d 23:26:27 l (disorder) (disorder) He rmann Resolved Problem 09/24/2013 APARNA Raman, CAMRYN Vazquez,M CAMRYN [facility] Allergies, Adverse Reactions, Alerts Allergy Allergy Status Severity Reaction(s) Onset Inactive Treating Comm ents Source Name Type Date Date Clinician gabapent DA Active [facility] 2020-02 [facility] in 03-21 Clear 00:00: Li 00 [facility] ondanset DA Active [place] doesnt work 2020-02 [facility] rj 03-21 Clear 00:00: Li 00 [facility] ketorola DA Active SV HALLUCINATIO 2020-02 HC A c NS 03-21 Clear 00:00: Li [facility] pregabal DA Active SV SWELLING 2020-02 [facility] in 03-21 Clear 00:00: Li 00 [facility] tramadol DA Active SV ITCHING/ 2020-02 [facility] RASH 03-21 Clear 00:00: Li [facility] tramadol DA Active SV 2020-0 [facility] 04-01 [facility] gabapent DA Active SV 2020-0 [facility] in 04-01 [facility] ond[place]et DA Active [place] 2020-0 [facility] rj 04-01 00:00: [facility] ketorola DA Active SV 2020-0 [facility] c 04-01 00:00: [facility] pregabal DA Active SV 2020-0 [facility] in 04-01 00:00: [facility] tramadol DA Active SV ITCHING/ 2020- [facility] RASH 04-01 00:00: [facility] gabapent DA Active SV SWELL[place] 2020-0 [facility] in 04-01 00:00: [facility] ond[place]et DA Active [place] doesnt work 2020- [facility] rj 04-01 00:00: [facility] ketorola DA Active SV HALLUCINATIO 2020-0 HC A c NS 04-01 00:00: [facility] pregabal DA Active SV SWELLING 2020-0 [facility] in 04-01 00:00: [facility] tramadol DA Active SV 2020-1 [facility] 0-02 Clear 00:00: Li 00 [facility] gabapent DA Active SV 2020- [facility] in 0-02 Clear 00:00: Li 00 [facility] ondanset DA Active [place] 2020- [facility] rj 0-02 Clear 00:00: Li 00 [facility] ketorola DA Active SV 2020- [facility] c 0-02 Clear 00:00: Li 00 [facility] pregabal DA Active SV 2020- [facility] in 0-02 Clear 00:00: Li 00 [facility] tramadol DA Active SV ITCHING/ 2019- [facility] RASH 0-02 Clear 00:00: Li 00 [facility] gabapent DA Active SV SWELLING 2019- [facility] in 0-02 Clear 00:00: Li 00 [facility] ondanset DA Active [place] doesnt work 2019- [facility] rj 0-02 Clear 00:00: Li [facility] ketorola DA Active SV HALLUCINATIO 2019- HC A c NS 002 Clear 00:00: Li [facility] pregabal DA Active SV SWELLING 2019-02 [facility] in 0-02 Clear 00:00: Li [facility] ondanset DA Active [place] 2019-0 [facility] rj 11-15 [place] 00:00: [facility] ondanset DA Active [place] doesnt work 2019-0 [facility] rj 11-15 [place] 00:00: [facility] tramadol DA Active SV 2019-0 [facility] 07-29 00:00: [facility] gabapent DA Active SV 2019-0 [facility] in 07-29 00:00: [facility] ketorola DA Active SV 2019-0 [facility] c 07-29 00:00: [facility] pregabal DA Active SV 2019-0 [facility] in 07-29 00:00: [facility] tramadol DA Active SV ITCHING/ 2019-0 [facility] RASH 07-29 00:00: [facility] gabapent DA Active SV SWELLING 2019-0 [facility] in 07-29 [place] 00:00: [facility] ketorola DA Active SV HALLUCINATIO 2019-0 HC A c NS 6-03 [place] 00:00: [facility] pregabal DA Active SV SWELLING [facility] in 07-29 [place] 00:[facility]: [facility] NITROFUR DRUG Active [facility] ANTOIN 08-27 ity of MONOHYD/ 00:00: [place] [facility] GABAPENT DRUG Active Swelling Univer [facility] IN INGREDI 04-20 ity of 00:00: [place] 00 [facility] KETOROLA DRUG Active Hallucinates Un rufino C INGREDI 09-23 ity of 00:00: [place] [facility] theophyl DA Active U [facility] line 3- [place] 00:00: [facility] guaifene DA Active U [facility] sin 05-20 [place] 00:00: [facility] theophyl DA Active U UNK [facility] line 3- [place] 00:00: [facility] guaifene DA Active U UNK [facility] sin 05-20 [place] 00:00: [facility] NAPROXEN DRUG Active N/V Univers INGREDI 9-10 ity of 00:00: [place] 00 [facility] TRAMADOL DRUG Active ITCHING Univers INGREDI 9-10 ity of 00:00: [place] [facility] naproxen naproxen Active Memori a l [place] Quibron Quibron Active Memoria l [place] Toradol Toradol Active Memoria l [place] Ultram Ultram Active Memoria l [place] Medications Ordered Filled Start Stop Current Ordering Indication Dosage Frequency Signature Comments Components Source Medication Medication Date Date Medication? Clinician (SIG) Name Name Alejandro Zahra Hamilton 2 tab, Memor ia 7.5/325 4-17 Mike Route: PO, l oral tablet 17:53: Drug Form: [place] 00 TAB, Dosing Weight 79, kg, ONCE, Start date: 06/12/12 12:53:00, Stop date: 06/12/12 12:53:00 Alejandro Zahra Hamilton 2 tab, Memor ia 7.5/325 4-17 [place] Route: PO, l oral tablet 17:53: Drug Form: [place] 00 TAB, Dosing Weight 79, kg, ONCE, Start date: 06/12/12 12:53:00, Stop date: 06/12/12 12:53:00 morphine No Andreas Alfonso 3 mg, Mem oria Sulfate 4-17 Mike Route: l 16:42: IVP, ONCE, Dosing Weight 79, kg, Start date: 06/12/12 11:42:00, Stop date: 06/12/12 11:42:00 morphine No Andreas Alfonso 3 mg, Mem oria Sulfate 4-17 Mike Route: l 16:42: IVP, ONCE, Dosing Weight 79, kg, Start date: 06/12/12 11:42:00, Stop date: 06/12/12 11:42:00 Zofran No Andreas Alfonso 4 mg, Memor ia 4-17 Mike Route: l 16:36: IVP, Drug [place] 00 form: INJ, ONCE, Dosing Weight 79, kg, Start date: 06/12/12 11:36:00, Stop date: 06/12/12 11:36:00 acetaminoph No Andreas Alfonso 1,000 mg, Memoria en 10 mg/mL 4-17 Mike Route: IV, l intravenous 16:36: Drug form: [place] solution 00 INJ, ONCE, Dosing Weight 79, kg, For > or = 50 kg, Start date: 06/12/12 11:36:00, Stop date: 06/12/12 11:36:00 morphine No Andreas Alfonso 2 mg, Mem oria Sulfate 4-17 Mike Route: l 16:36: IVP, ONCE, Dosing Weight 79, kg, Start date: 06/12/12 11:36:00, Stop date: 06/12/12 11:36:00 Zofran No Andreas Alfonso 4 mg, Memor ia 4-17 Mike Route: l 16:36: IVP, Drug [place] 00 form: INJ, ONCE, Dosing Weight 79, kg, Start date: 06/12/12 11:36:00, Stop date: 06/12/12 11:36:00 acetaminoph No Andreas Alfonso 1,000 mg, Memoria en 10 mg/mL 4-17 Mike Route: IV, l intravenous 16:36: Drug form: [place] solution 00 INJ, ONCE, Dosing Weight 79, kg, For > or = 50 kg, Start date: 06/12/12 11:36:00, Stop date: 06/12/12 11:36:00 morphine No Andreas Alfonso 2 mg, Mem oria Sulfate 4-17 Mike Route: l 16:36: IVP, ONCE, Dosing Weight 79, kg, Start date: 06/12/12 11:36:00, Stop date: 06/12/12 11:36:00 Zofran Yes Andreas Alfonso 4 mg, 1 Mem oria 4-17 [place] tab, l 16:30: Route: PO, Drug form: TAB, ONCE, Dosing Weight 79, kg, Start date: 06/12/12 11:30:00, Stop date: 06/12/12 11:30:00 morphine No Andreas Alfonso 2 mg, Mem oria Sulfate 4-17 Mike Route: l 16:30: IVP, ONCE, Dosing Weight 79, kg, Start date: 06/12/12 11:30:00, Stop date: 06/12/12 11:30:00 acetaminoph No Andreas Alfonso 1,000 mg, Memoria en 10 mg/mL 4-17 Mike Route: IV, l intravenous 16:30: Drug form: [place] solution 00 INJ, ONCE, Dosing Weight 79, kg, For > or = 50 kg, Start date: 06/12/12 11:30:00, Stop date: 06/12/12 11:30:00 Zofran Yes Andreas Alfonso 4 mg, 1 Mem oria 4-17 [place] tab, l 16:30: Route: PO, Drug form: TAB, ONCE, Dosing Weight 79, kg, Start date: 06/12/12 11:30:00, Stop date: 06/12/12 11:30:00 morphine No Andreas Alfonso 2 mg, Mem oria Sulfate 4-17 Mike Route: l 16:30: IVP, ONCE, Dosing Weight 79, kg, Start date: 06/12/12 11:30:00, Stop date: 06/12/12 11:30:00 acetaminoph No Andreas Alfonso 1,000 mg, Memoria en 10 mg/mL 06-12 Mike Route: IV, l intravenous 16:30: Drug form: [place] solution 00 INJ, ONCE, Dosing Weight 79, kg, For > or = 50 kg, Start date: 06/12/12 11:30:00, Stop date: 06/12/12 11:30:00 Vital Signs Vital Name Observation Time Observation Value Comments Source Systolic (mm Hg) 2012-06-12 18:00:00 Azam rial [place] Diastolic (mm Hg) 2012-06-12 18:00:00 Mem orial [place] Respitory Rate 2012-06-12 18:00:00 Memori al [place] Diastolic (mm Hg) 2012-06-12 17:45:00 Mem orial [place] Systolic (mm Hg) 2012-06-12 17:45:00 Azam rial [place] Respitory Rate 2012-06-12 17:45:00 Memori al [place] Diastolic (mm Hg) 2012-06-12 17:30:00 Mem orial [place] Respitory Rate 2012-06-12 17:30:00 Memori al [place] Systolic (mm Hg) 2012-06-12 17:30:00 Azam rial [place] Temperature Oral (F) 2012-06-12 11:07:00 98.1 F [facility] [place] Height 2012-06-06 14:33:00 157.48 cm Mary Raman Weight 2012-06-06 14:33:00 [facility] [place] Procedures Procedure Date / Time Performing Clinician Source Performed Appendectomy <sup>1</sup> Demetrius Horn Arthroscopy of knee Leftin, Mike Sahni barrientos <sup>3</sup> Arthroscopy of shoulder Leftin, Mike Raman <sup>4</sup> Bilateral tubal ligation Harrisonoria l [place] <sup>5</sup> Biopsy of bladder Mary [place] nn <sup>6</sup> Cholecystectomy Mary Raman <sup>7</sup> CTR - Carpal tunnel release Azam rial [place] <sup>8</sup> Excision of cyst Leftin, Mike Clark n <sup>9</sup> Hysterectomy <sup>10</sup> Boogie iatoy Raman Surgical procedures Leftin, Mike Sahni barrientos <sup>11</sup> Encounters Start End Encounter Admission Attending Care Care Encounter Source Date/Time Date/Time Type Type Clinicians Facility Department ID 2021-02-04 Inpatient DANIELA Verdugo [facility] DAYS [id number] [facility] 09:35:00 Tomgailo 50311 [facility] 2020-12-30 Inpatient DANIELA Verdugo [facility] RADI [id number] [facility] 13:00:00 Brooko 41738 [facility] 2020-05-21 Inpatient DANIELA Cote [facility] RADI [id number] [facility] 13:30:00 Fidencio [id number] [facility] 2020-05-14 Inpatient DANIELA Cote [facility] RADI [id number] [facility] 10:30:00 Fidencio 29017 [facility] 2020-04-07 Inpatient DANIELA Cote [facility] DAYS [id number] [facility] 12:30:00 Fidencio 32901 [facility] 2019-12-28 Inpatient DANIELA Cote [facility] SURG [id number] [facility] 11:44:00 Fidencio 49325 [facility] 2019-09-30 Inpatient DANIELA Cote [facility] RADI [id number] [facility] 11:30:00 Fidencio 39533 [facility] 2019-09-15 Inpatient DANIELA Cote [facility] RADI [id number] [facility] 11:30:00 Fidencio 33893 [facility] 2019-09-04 Inpatient DANIELA Cote [facility] RADI [id number] [facility] 11:30:00 Fidencio 38600 [facility] 2019-08-13 Inpatient DANIELA Cote [facility] RADI [id number] [facility] 12:15:00 Fidencio [id number] [facility] 2021-01-26 2021-01-26 Outpatient DANIELA Verdugo [facility]AT[facility] DAYS [id number] [facility] 07:46:00 07:46:00 Brooko 09093 [place] [facility] 2021-01-26 2021-01-26 Outpatient DANIELA Verdugo HCATO HCATO [id number] [facility] 07:46:00 07:46:00 Brooko 42 [place] [facility] 2021-01-19 2021-01-19 Outpatient Kartik HCACL LABO [id number] 17:02:00 17:02:00 Tomiko 21173 [facility] 2021-01-19 2021-01-19 Inpatient HUONG VoTO SURG [id number] [facility] 09:35:00 09:35:00 Tomiko 30901 [facility] 2021-01-11 2021-01-11 Outpatient HUONG VoTO RADI [id number] [facility] 13:04:00 13:04:00 Tomiko 13214 [facility] 2020-12-31 2020-12-31 Outpatient Kartik HCAT[facility] RADI [id number] [facility] 12:15:00 12:15:00 Tomiko [id number] [place] [facility] 2020-12-30 2020-12-30 Outpatient HUONG VoTO RADI [id number] [facility] 13:00:00 13:00:00 Tomiko 01 [place] [facility] 2020-07-29 2020-07-29 Outpatient Lexi CABRERA [facility] [id number] Univers 11:00:00 11:00:00 JEANCARLOS Monk603 [facility] 2020-07-29 2020-07-29 Outpatient Lexi CABRERA [facility] [id number] Univers 11:00:00 11:00:00 JEANCARLOS [facility] 2020-07-23 2020-07-23 Outpatient Lexi CABRERA [facility] [id number] Univers 00:00:00 00:00:00 JEANCARLOS Monk528 [facility] 2020-07-23 2020-07-23 Outpatient Lexi CABRERA [facility] [id number] Univers 00:00:00 00:00:00 JEANCARLOS [facility] 2020-07-20 2020-07-20 Outpatient Lexi CABRERA [facility] [id number] Univers 11:00:00 11:00:00 JEANCARLOS Monk525 [facility] 2020-07-20 2020-07-20 Outpatient Lexi CABRERA [facility] [id number] Univers 00:00:00 00:00:00 JEANCARLOS hannah [facility] 2020-07-08 2020-07-08 Outpatient R RICK [facility] [id number] Univers 10:30:00 10:30:00 JEANCARLOS [id number] [facility] 2020-07-08 2020-07-08 Outpatient R CABRERA [facility] [id number] Univers 10:30:00 10:30:00 JEANCARLOS [facility] 2020-07-06 2020-07-06 Outpatient R FELECIA [facility] [id number] Univers 15:00:00 15:00:00 PEREZ Monk511 [facility] 2020-07-06 2020-07-06 Outpatient R FELECIA [facility] [id number] Univers 15:00:00 15:00:00 PEREZ [facility] 2020-06-21 2020-06-21 Outpatient Lexi PUCKETT [facility] [id number] Univers 09:00:00 09:00:00 URIEL [id number] [facility] 2020-06-21 2020-06-21 Outpatient Lexi QUINTEROMATILDE [facility] [id number] Univers 09:00:00 09:00:00 URIEL [facility] 2020-05-05 2020-05-05 Outpatient HUONG CoteTO HCATO [id number] [facility] 10:00:00 10:00:00 Fidencio 25888 [place] [facility] 2020-04-01 2020-04-02 Inpatient EL Rocael HCAT[facility] SURG [id number] [facility] 05:49:00 14:06:00 Fidencio 31333 [place] [facility] 2020-03-27 2020-03-27 Laboratory Lab, [facility] [id number] 12:45:43 13:05:43 Only [facility] [id number] [place] [id number] Professio [phone] nal [address] 2020-03-27 2020-03-27 Outpatient Lexi MONTERO [facility] [id number] Univers 13:00:00 13:00:00 GUANACO loving [facility] 2020-03-27 2020-03-27 Outpatient R [facility] [id number] Univers 09:40:00 09:40:00 [id number] ity [facility] 2020-03-26 2020-03-26 Outpatient [facility] [id number] Univers 17:00:00 17:00:00 [id number] y [facility] 2020-03-26 2020-03-26 Outpatient R KYLAH, [facility] [id number] Univers 17:00:00 17:00:00 GUANACO ithannah o f [facility] 2020-03-25 2020-03-25 Outpatient R UNKNOWN, [facility] [id number] Univers 17:00:00 17:00:00 ATTENDING ity [facility] 2020-03-25 2020-03-25 Outpatient [facility] [id number] Univers 14:20:00 14:20:00 [id number] [facility] 2020-03-15 2020-03-15 Outpatient Rocael HUONGCL LABO [id number] [facility] 17:44:00 17:44:00 Fidencio [id number] [facility] 2019-12-26 2019-12-26 Outpatient R [facility] [id number] Univers 12:15:00 12:15:00 [facility] 2019-12-26 2019-12-26 Outpatient R DOUGLAS, [facility] [id number] Univers 12:15:00 12:15:00 FORTINO [facility] 2019-12-26 2019-12-26 Orders Doctor RODRIGEZ [id number] 00:00:00 00:00:00 Only Unassigned, GRICELDA [id number] [facility] [id number] 2019-12-18 2019-12-18 Outpatient DANIELA Cote HUONGTO LABO [id number] [facility] 08:00:00 08:00:00 Fidencio [id number] [facility] 2019-11-28 2019-11-28 Outpatient DANIELA Cote HUONGTO LABO [id number] [facility] 08:00:00 23:59:00 Fidencio [id number] [facility] 2019-11-28 2019-11-28 Outpatient HERMINIA Cote LABO [id number] [facility] 17:29:00 17:29:00 Fidencio [id number] [facility] 2019-09-16 2019-09-16 Laboratory Lab, [facility] [id number] 10:00:02 10:03:40 Only [facility] [id number] [place] [id number] Professio [phone] nal 044 [address] [facility] 2019-09-16 2019-09-16 Outpatient R [facility] [id number] Univers 09:40:00 09:40:00 [id number] ity [facility] 2019-09-16 2019-09-16 Outpatient R SUHAS, [facility] [id number] Univers 09:40:00 09:40:00 EVELYNECHUY manzo [facility] 2019-07-24 2019-07-24 Outpatient Rocael HCATO RADI [id number] [facility] 09:15:00 09:15:00 Fidencio [id number] [facility] 2019-07-23 2019-07-23 Outpatient R LORI, [facility] [id number] Univers 09:45:00 09:45:00 BENNIE manzo [facility] 2019-03-12 2019-03-12 Outpatient Nadir Perez HCATO RADI [id number] [facility] 13:00:00 13:00:00 [id number] [facility] 2013-09-22 2013-09-[address] [facility] [id number] Memoria 15:51:00 04:59:00 Services r Outpatient 05 l Imaging [place] 2013-09-22 2013-09-[address] [facility] [id number] Memoria 15:51:00 04:59:00 Services r Outpatient 05 l Imaging [place] 2013-09-22 2013-09-22 Outpatient Yovani [id number] 10:51:00 23:59:00 , Darinel [id number] Mark [id number] 10 7313-07-22 2013-09-[address] [facility] [id number] Memoria 19:03:00 04:59:00 Services r Outpatient 04 l Imaging [place] 2013-09-16 2013-09-[address] [facility] [id number] Memoria 19:03:00 04:59:00 Services r Outpatient 04 l Imaging [place] 2013-09-16 2013-09-16 Outpatient Jovon Springer [id number]. [id number] . [id number] 14:03:00 23:59:00 A W [id number] 8068-07-10 2013-09-[address] [facility] [id number] Memoria 15:28:00 04:59:00 Services r Outpatient 03 l Imaging - Eduardo n [facility] 2013-09-04 2013-09-[address] [facility] [id number] Memoria 15:28:00 04:59:00 Services r Outpatient 03 l Imaging - Eduardo n [facility] 2013-09-04 2013-09-04 Outpatient Jovon Springer [id number]. [id number] . [id number] 10:28:00 23:59:00 A W [id number] 7814-04-17 2012-06-12 DS nullFlavo [id number] Memoria 05:19:00 13:40:00 [place] [address] [place] 2012-06-12 2012-06-12 DS nullFlavo [id number] Memoria 05:19:00 13:40:00 [place] [address] l [place] Results Test Description Test Time Test Comments Results Result Comments Source Novel Coronavirus 2019 Inhouse 2021-01-20 20:53:00 Test Item Value Reference Range Interpretation Comme nts Novel Coronavirus 2019 Negative Negative Posit brenda results are indicative of the Inhouse (test code = presenc e laRISE-GfH-8 RNA, clinical COVNONPUI) correlation wit h patient historyand other diagnosti c information is necessary to de terminepatient infection status. Positiv e results do not rule outbacterial in fection or co-infection with other viru ses. Negative results do not preclude SA RS-CoV-2 infection andshould not b e used as the sole basis for patient man agementdecisions. Negative result s must be combined with otherclinical o bservations, patient history, and ep idemiologicalinformation. Detection of SA RS-CoV-2 RNA may be affected bysamp le collection methods, storage conditi ons, and/or stageof infection. Adwoa l RNA mutations, vaccinations, a ntiviraltherapeutics, antibiotics, ch emotherapeutic orimmunosuppres le drugs have not been evaluated for e ffectson detection. Results are for the identification of SARS-CoV-2 RNA usingthe [employer] System under th e FDA Emergency UseAuthorizatio n. The testing is performed by patrizia rsonneltrained in the procedures for the [employer]000 moleculardiagno stic SARS-CoV-2 assay in vitro. Novel Coronavirus 2018 [id number] 20:52:00 Test Item Value Reference Range Interpretation Comments Novel Coronavirus Negative Negative Positive r esults are 2019 Inhouse (test indicativ e of the presence code = COVNONPUI) ofSARS-CoV -2 RNA, clinical correlation wit h patient historyand othe r diagnostic info rmation is necessary to determinepatien t infection status. Positiv e results do not rule out bacterial infection or co -infection with other viru ses. Negative result s do not preclude SARS-C oV-2 infection andsh ould not be used as the mary ellen e basis for patient managementdecis ions. Negative result s must be combined with otherclinical observations, p atient history, and epidemiological information . Detection of SARS-CoV-2 RNA may be affe cted bysample collec tion methods, storag e conditions, and /or stageof infection. Adwoa l RNA mutations, vacc inations, antiviraltherap eutics, antibiotics, chemotherapeuti c orimmunosuppres le drugs have not been e valuated for effectson d etection. Results are for the identification of SARS-CoV-2 RNA usingthe [employer] M2000 Sy stem under the FDA Emergen cy UseAuthorizatio n. The testing is perf ormed by tiffany gold in the procedures for the Arce M2000 molecular diagnostic SARS-CoV-2 ayala young in vitro. - MRI LW JNT W/O CONT [id number] 16:15:00 [facility] : 1970 Sex: F Patient Name: JOHNSON AVITIA Unit No: [id number] EXAMS: CPT CODE: [id number] MRI [facility] W/[place] [id number] TECHNIQUE: Multiplanar multisequence MR images through the left ankle were acquired without contrast. COMPARISON: No comparison available. FINDINGS: Bone/ Cartilage: No definite acute fracture is visualized. Mild degenerative edema of the posterior subtalar facet and calcaneocuboid joint is present. An os trigonum is present with associated bone marrow edema. Tendons: Peroneus brevis and longus tendinosis is demonstrated with a high-grade partial tear of the peroneus brevis tendon just distal to the peroneal tubercle. The Achilles and flexor tendons are intact. Increased fluid is seen within the extensor digitorum tendon sheath that evidence of tear. Ligaments: Complete tear of the anterior talofibular ligament is demonstrated. The tibiofibular ligament is thickened with increased signal, likely a sprain. Increased signal of the deltoid ligament is most consistent with a sprain with possible partial tear present as well. Other: A small ankle joint effusion is present. The fat within the sinus tarsi is normal. No evidence of plantar fasciitis. IMPRESSION: 1. 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 2. Torn anterior talofibular ligament as well as sprains of the calcaneofibular and deltoid ligaments. 3. Additional chronic findings as described. at 1615 Reported and signed by: Edilberto Mckeon M.D. CC: Talia Verdugo MD Technologist: Tawana Wheeler, RT(R) Transcribed D/ (1615) [facility] NAME: JOHNSON AVITIA [address] [facility] PHYS: Talia Gupta MD : 1970 AGE: 50 SEX: F [place] [address] : Y.MRI PHONE #: [phone] EXAM DATE: 01/11/2021 STATUS: REG CLI FAX #: [phone] RAD #: D/C DT PAGE 1 Signed Report Patient Name: JOHNSON AVITIA Unit No: [id number] EXAMS: CPT CODE: [id number] [place] LW JNT [place] [address] (Continued) Orig Print D/T: S: 01/11/2021 (1619) [facility] NAME: JOHNSON AVITIA [address] [place] [address] PHYS: CLAREJUAN ALBERTO Man Talia Verdugo MD : 1970 AGE: 50 SEX: F [place] [address] LOC: Y.MRI PHONE #: [phone] EXAMDATE: 01/11/2021 STATUS: REG CLI FAX #: [phone] RAD #: D/C DT PAGE 2 Signed Report- CT HEAD/BRAIN W/O [id number] 13:40:00 [facility] : 1970 Sex: F Patient Name: JOHNSON AVITIA Unit No: [id number] EXAMS: CPT CODE: [id number] CT HEAD/BRAIN W/O CONT 88899 DIAGNOSIS: No evidence for hematoma or fracture. COMMENT: COMPARISON: No prior exams available. Scans were performed with thin sections and reconstructions were obtained. CT radiation dose optimization is achieved for this examination by the use of a CT protocol in accordance with ACR practice standards and adherence to crimper assembler's recommendations. There is no evidence for intra or extra-axial mass lesion or fluid collection. There is mild focal frontal atrophy. The ventricular size is within normal limits. There is no evidence for mass effect or midline shift. There is no evidence for hemorrhage. at 1340 Reported and signed by: Josep Ding MD CC: Fidencio Cote MD Technologist: Kayode Matson,RT(R)CTDI: DLP: Trnscrpt: 05/21/2020 (1340) t.FLACOR.[facility] NAME: JOHNSON AVITIA [address] [facility] PHYS: STJOSÉ MIGUEL - Fidencio Cote : 1970 AGE: 49 SEX: F [place], [place] [address] LOC: Y.RAD PHONE #: [phone] EXAM DATE: 05/21/2020 STATUS: REG CLI FAX #: [phone] RAD #: D/C DT PAGE 1 Signed Report Patient Name: JOHNSON AVITIA Unit No: [id number] EXAMS: CPT CODE: [id number] CT HEAD/BRAIN W/O CONT 89193 (Continued) Orig Print D/T: S: 05/21/2020 (1344) [facility] NAME: JOHNSON AVITIA [address] PHYS: Fidencio Alavrado : 1970 AGE: 49 SEX: F [place], [place] [address] LOC: SHELIA PHONE #: [phone] EXAM DATE: 05/21/2020 STATUS: REG CLI FAX #: [phone] RAD #: D/C DT PAGE 2 Signed ReportBASIC METABOLIC [id number] 06:22:00 Test Item Value Reference Range Interpretation Comments SODIUM (test code = 141 mmol/L 136-145 N NA) POTASSIUM (test code = 4.3 mmol/L 3.5-5.1 N K) CHLORIDE (test code = 103.0 mmol/L 98-107 N CL) CARBON DIOXIDE (test 23.5 mmol/L 21-32 N code = CO2) GLUCOSE (test code = 166 mg/dL 70-110 H GLU) BLOOD UREA NITROGEN 8 mg/dL 7-18 N (test code = BUN) GLOMERULAR FILTRATION 80.4 >60 Unit o f measure: RATE (test code = GFR) mL/mi n/1.73 [id number] Range:Healthy Adults >90 mL/min/1.73 m2 For Chronic Kidney Disease: Stage II Mild Decrease i n GFR 60-90 Stage III Moderate Decrea se in GFR 30-59 St age IV Severe Decre ase in GFR 15-29 St age V Kidney Failur e <15 CREATININE (test code 0.77 mg/dL 0.55-1.30 N = CREAT) CALCIUM (test code = 9.0 mg/dL 8.2-10.1 N CA) HGB [id number] 05:51:00 Test Item Value Reference Range Interpretation Comments HEMOGLOBIN (test code = HGB) 12.0 g/dL 12-16 N HEMATOCRIT (test code = HCT) 36.9 % 37-47 L PROTHROMBIN [id number] 09:40:00 Test Item Value Reference Range Interpretation Comments PROTHROMBIN TIME 11.0 secs 10.1-12.5 N PATIENT (test code = PTP) INTERNATIONAL NORMAL 0.96 <2.0 RECOMME NDED THERAPEUTIC RATIO (test code = RANGE FOR ORAL INR) ANTICOAGULANTTR EATMENT: CONDITION INRPr ophylaxis of venous throm bosis in 2.0 - 3.0 high- risk medical or surg ical patientsTreatme nt of venous thrombos is 2.0 - 3.0Prevention o f embolism 2.0 - 3.0Prevention o f recurrent embol ism, or 3.0 - 4.5 patie nts with mechanical pros thetic intravascular v polanco THROMBOPLASTIN TIME [id number] 09:40:00 Test Item Value Reference Range Interpretation Comments PTT ACTIVATED (test code = APTT) 26.8 secs 24.9-37.0 N BASIC METABOLIC [id number] 09:15:00 Test Item Value Reference Range Interpretation [...] RATE (test code = GFR) mL/mi n/1.73 [id number] Range:Healthy Adults >90 mL/min/1.73 m2 For Chronic Kidney Disease: Stage II Mild Decrease i n GFR 60-90 Stage III Moderate Decrea se in GFR 30-59 St age IV Severe Decre ase in GFR 15-29 St age V Kidney Failur e <15 CREATININE (test code 1.10 mg/dL 0.55-1.30 N = CREAT) CALCIUM (test code = 9.4 mg/dL 8.2-10.1 N CA) CBC W/AUTO [id number] 09:11:00 Test Item Value Reference Range Interpretation [...] 0-0 N code = NRBC) CBC W/AUTO [id number] 14:28:00 Test Item Value Reference Range Interpretation [...] 0-0 N code = NRBC) BASIC METABOLIC [id number] 17:05:00 Test Item Value Reference Range Interpretation [...] RATE (test code = GFR) mL/mi n/1.73 [id number] Range:Healthy Adults >90 mL/min/1.73 m2 For Chronic Kidney Disease: Stage II Mild Decrease i n GFR 60-90 Stage III Moderate Decrea se in GFR 30-59 St age IV Severe Decre ase in GFR 15-29 St age V Kidney Failur e <15 CREATININE (test code 0.93 mg/dL 0.55-1.30 N = CREAT) CALCIUM (test code = 9.2 mg/dL 8.2-10.1 N CA) PROTHROMBIN [id number] 16:11:00 Test Item Value Reference Range Interpretation Comments PROTHROMBIN TIME 11.5 secs 10.1-12.5 N PATIENT (test code = PTP) INTERNATIONAL NORMAL 1.03 <2.0 RECOMME NDED THERAPEUTIC RATIO (test code = RANGE FOR ORAL INR) ANTICOAGULANTTR EATMENT: CONDITION INRPr ophylaxis of venous throm bosis in 2.0 - 3.0 high- risk medical or surg ical patientsTreatme nt of venous thrombos is 2.0 - 3.0Prevention o f embolism 2.0 - 3.0Prevention o f recurrent embol ism, or 3.0 - 4.5 patie nts with mechanical pros thetic intravascular v polanco IS PATIENT ON ANTICOAGULANTS ? MAas Lab been notified if Patient is on Heparin Drip? NOIf Yes, orderCBC, OCCULT BLOOD, PT every other day NTHROMBOPLASTIN TIME [id number] 16:11:00 Test Item Value Reference Range Interpretation [...] code = NRBC) - MRI C-SPINE W/O [id number] 13:46:00 Patient Name: JOHNSON AVITIA Unit No: [id number] EXAMS: CPT CODE: [id number] MRI C-SPINE W/O CONT [id number] MRI OF THE CERVICAL SPINE: DIAGNOSIS: 1. At C2-3, mild disc degeneration. No central canalor foraminal stenosis. 2. At C3-4, disc desiccation. There is a 4 mm right posterior lateral right foraminal subligamentous disc herniation indenting the adjacent thecal sac. There may be associated impingement of the right C5 nerve root lateral gutter and possibly the right C4 nerve root as it entersthe right neural foramen. Mild to moderate central canal stenosis. Moderate right foraminal and moderate to marked left foraminal stenosis. 3. At C4-5, disc desiccation. No central canal stenosis. Mild bilateral foraminal stenosis. 4. At C5-6,mild disc degeneration. No central canal stenosis. There appears to be a 4 mm left foraminal disc herniation possibly impinging the left C6 nerve root. Please correlate with the clinical examination. Moderate to marked left foraminal stenosis and mild right foraminal stenosis. 5. At C6-7, mild disc degeneration. Mild disc bulging. No central canal or foraminal stenosis. 6. At C7-T1, no disc bulge or herniation. No central canal or foraminal stenosis. 7. Evaluation is extremely limited due to extensive motion artifact. Multiple repeat sequences were obtainedwith little improvement in regards to motion artifact. COMMENT: COMPARISON: No prior exams available. Sagittal T1, T2 and STIR and axial T2 and gradient-echo sequences are obtained of the cervical spine . Cervical vertebrae are within normal limits in signal. The findings are as above. at 1346 Reported and signed by: Barber Vargas MD CC: Fidencio Cote MD Technologist: Tawana Wheeler, RT(R) Transcribed D/ (1346) [facility] NAME: JOHNSON AVITIA [address] [place] [address] PHYS: Fidencio Alvarado : 1970 AGE: 49 SEX: F [place] [address] LOC: Y.MRI PHONE #: [phone] EXAM DATE: 09/30/2019 STATUS: REG CLI FAX #: [phone] RAD #: D/C DT PAGE 1 Signed Report Patient Name: JOHNSON AVITIA Unit No: [id number] EXAMS: CPT CODE: [id number] MRI C-SPINE W/O CONT 33433 (Continued) Orig Print D/T: S: 09/30/2019 (1349) [facility] NAME: JOHNSON AVITIA [address] [place] [address] PHYS: Fidencio Alvarado : 1970 AGE: 49 SEX: F [place] [address] LOC: Y.MRI PHONE #: [phone] EXAM DATE: 09/30/2019 STATUS: REG CLI FAX #: [phone] RAD #: D/C DT PAGE 2 Signed Report- MRI L-SPINE W/O [id number] 15:01:00 Patient Name: JOHNSON AVITIA Unit No: [id number] EXAMS: CPT CODE: [id number] MRI L-SPINE W/O CONT 00895 DIAGNOSIS: 1. At L1-2 there is no evidence for disc bulge or herniation, bony canal or foraminal stenosis. 2. At L2-3 there is no evidence for disc bulge or herniation, bony canal or foraminal stenosis. 3. At L3-4 there is no evidence for disc bulge [...] or herniation. There is a possible right L5 pars defect and CT with reconstruction is recommended in further evaluation if clinically indicated. Slight narrowing of the central canal is present with facet and ligamentum flavum hypertrophicand degenerative change. COMMENT: COMPARISON: No prior exams available. Scans were performed in the sagittal and axial planes utilizing T1, T2 and inversion recovery images. 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 The discs are mildly desiccated. Disc configurations are as described. Spondylitic changesare as noted. The conus is in the expected location. The description these findings assumes a normalcount of 5 lumbar type vertebra. at 1501 Reported and signed by: Josep Ding MD CC: Fidencio Cote MD Technologist: ELROY JOSEPH Transcribed D/ (1501) [facility]ON AVIT[facility] [address] [facility] PHYS: Fidencio Alvarado : 1970 AGE: 48 SEX: F [place], [place] [address] LOC: Y.MRI PHONE #: [phone] EXAM DATE: 08/13/2019 STATUS: REG CLI FAX #: [phone] RAD #: D/C DT PAGE 1 Signed Report Patient Name: JOHNSON AVITIA Unit No: [id number] EXAMS: CPT CODE: [id number] MRI L-SPINE W/O CONT 79593 (Continued) Orig Print D/T:S: 08/13/2019 (1504) [facility] NAME: JOHNSON AVITIA [address] PHYS: Fidencio Alvarado : 1970 AGE: 48 SEX: F [place] [address] : Y.MRI PHONE #: [phone] EXAM DATE: 08/13/2019 STATUS: REG CLI FAX #: [phone] RAD #: D/C DT PAGE 2 Signed Report- MRI UPPER EX W/O CONT [id number] 08:30:00 Patient Name: JOHNSON AVITIA Unit No: [id number] EXAMS: CPT CODE: [id number] [place] EX W/[place] [address] MRI OF THE LEFT THUMB DIAGNOSIS: There is a cyst in the head of the 1st metacarpal onthe radial side adjacent to the attachment of the radial collateral ligament. Mildly increased T2-weighted signal in the proximal radial collateral ligament proximally consistent with a sprain without tearing. [...] MD Technologist: Tawana Wheeler, RT(R) Transcribed D/ (0830) [facility] NAME: JOHNSON AVITIA [address] PHYS: Nadir Burnett MD : 1970 AGE: 48 SEX: F [place] [address] LOC: Y.MRI PHONE #: [phone] EXAM DATE: 03/12/2019 STATUS: DEP CLI FAX #: [phone] RAD #: D/C DT PAGE 1 Signed Report Patient Name: JOHNSON AVITIA Unit No: [id number] EXAMS: CPT CODE: [id number] [place]ER EX W/[place] [address] (Continued) Orig Print D/T: S: 03/13/2019 (0833) [facility] [facility] Nadir Burnett MD : 1970 AGE: 48 SEX: F [place], [place] [address] LOC: Y.MRI PHONE #: [phone] EXAM DATE: 03/12/2019 STATUS: DEP CLI FAX #: [phone] RAD #: D/C DT PAGE 2 Signed Report- MRI UP JNT W/O CONT [id number] 08:47:00 Patient Name: JOHNSON AVITIA Unit No: [id number] EXAMS: CPT CODE: [id number] MRI UP JNT W/[place] [address] MR of the right shoulder without contrast TECHNIQUE: Paracoronal, parasagittal and axialmultisequence images obtained. COMPARISON: None available. FINDINGS: Acromioclavicular joint: Mild degenerative changes. Rotator cuff: Jordan interstitial tear of the posterior supraspinatus insertion measures 9 mm transversely and reaches high-grade (coronal [...] Technologist: Tawana Wheeler, RT(R) Transcribed D/ (0847) [facility] NAME: JOHNSON AVITIA [address] [facility] PHYS: Osmani Nguyen MD : 1970 AGE: 47 SEX: F [place] [address] LOC: Y.MRI PHONE #: [phone] EXAM DATE: 07/06/2018 STATUS: DEP CLI FAX #: [phone] RAD #: D/CDT PAGE 1 Signed Report Patient Name: JOHNSON AVITIA Unit No: [id number] EXAMS: CPT CODE: [id number] MRI [place] JNT W/[place] [address] (Continued) Orig Print D/T: S: 07/08/2018 (0851) [facility] NAME: JOHNSON AVITIA [address] PHYS: Osmani Nguyen MD : 1970 AGE: 47 SEX: F [place] [address] LOC: Y.MRI PHONE #: [phone] EXAM DATE: 07/06/2018 STATUS: DEP CLI FAX #: [phone] RAD #: D/C DT PAGE 2 Signed Report
[2021-10-25] MEDS ORDERED: LIDOCAINE 1% MPF 30 ML VIAL ONE (10:06)
[2021-10-25] MEDS ORDERED: MORPHINE 4 MG/ML SYR ONE (10:06)
[2021-10-25] MEDS ORDERED: PROMETHAZINE INJ 25 MG/ML AMP ONE (10:06)
[2021-10-25] MEDS ORDERED: NA CHLORIDE 0.9% 1,000 ML ONE (10:07)
[2021-10-25] MEDS ORDERED: CLINDAMYCIN 900MG/D5W 900 MG/50 ML IVPB IV ONE (10:07)
--- NOTE | 2021-10-25 10:42 | ER ---
Nurse's Notes [facility] Name: Deann Avitia Age: 51 yrs Sex: Female : 1970 Arrival Date: 10/25/2021 Time: 09:14 Bed 10 Private MD: Diagnosis: Cutaneous abscess of abdominal wall Presentation: 10/25 09:17 Chief complaint: Patient states: i looked like a light bruise, lower RIGHT abdomen. tw2 noticed it Sunday or Sunday. then Sunday evening or Sunday i was sweating and i keep my ac on 61 degrees. i kept sweating. i have fibromyalgia. +N. and itching all over for 2 days. i think i got bit by a spider. i tried to mash it and a small bit of whitish stuff and a little bit of blood came out. Coronavirus screen: At this time, the client does not indicate any symptoms associated with coronavirus-19. Ebola Screen: Patient denies travel to an Ebola-affected area in the 21 days before illness onset. Initial Sepsis Screen: Does the patient meet any 2 criteria? HR > 90 bpm. No. Patient's initial sepsis screen is negative. Does the patient have a suspected source of infection? No. Patient's initial sepsis screen is negative. Risk Assessment: Do you want to hurt yourself or someone else? Patient reports no desire to harm self or others. Onset of symptoms was October 25, 2021. 09:17 Method Of Arrival: Ambulatory tw2 09:17 Acuity: JHONATHAN 3 tw2 09:22 Note provider CONSTANZA Morin in triage room for assessment at this time. tw2 Triage Assessment: 09:20 General: Appears in no apparent distress. Behavior is calm, cooperative, appropriate tw2 for age. Pain: Complains of pain in right lower quadrant. Neuro: Level of Consciousness is awake, alert, obeys commands, Oriented to person, place, time, situation. Respiratory: Airway is patent Respiratory effort is even, unlabored, Respiratory pattern is regular, symmetrical. Musculoskeletal: Range of motion: intact in all extremities. IN HOME BABY SITTER: 09:23 LMP N/A - Hysterectomy tw2 Historical: - Allergies: 09:20 GABAPENTIN; tw2 09:20 Lyrica; tw2 09:20 Naproxen; tw2 09:20 Toradol; tw2 09:20 tramadol; tw2 09:20 Ultram; tw2 - Home Meds: 09:20 Zoloft 100 mg Oral tab 1 tab once daily [Active]; Wellbutrin XL 300 mg Oral Tb24 1 tab tw2 once daily [Active]; tizanidine 4 mg Oral cap twice a day [Active]; Mobic 15 mg Oral tab 1 tab once daily [Active]; Lamictal 200 mg Oral tab 1 tab once daily [Active]; Morphabond ER every 8 hours [Active]; Valium 4 mg 2 times a day Oral tab [Active]; - PMHx: 09:20 Chronic pain; Fibromyalgia; tw2 - PSHx: 09:20 hysterectomy; tw2 - Immunization history:: Adult Immunizations. - Social history:: Smoking status: . Screenin:23 Abuse screen: Denies threats or abuse. Nutritional screening: No deficits noted. tw2 Tuberculosis screening: No symptoms or risk factors identified. Fall Risk None identified. Assessment: 09:30 General: Appears in no apparent distress. Behavior is calm, cooperative. Pain: iw Complains of pain in abdomen and right lower quadrant. Neuro: Marie Agitation-Sedation Scale (RASS): Level of Consciousness is awake, alert, obeys commands, Oriented to person, place, time, situation, Moves all extremities. Full function. Derm: Skin Abscess located on right lower quadrant. Musculoskeletal: Range of motion: intact in all extremities. Vital Signs: 09:17 BP 145 / 100; Pulse 103; Resp 18; Temp 98.2(O); Pulse Ox 99% on R/A; Weight 86.64 kg tw2 (R); Height 5 ft. 2 in. (157.48 cm) (R); Pain 7/10; 09:17 Body Mass Index 34.93 (86.64 kg, 157.48 cm) tw2 ED Course: 09:14 Patient arrived in ED. mr 09:15 Patience Campbell FNP is PHCP. jh7 09:15 Roman Alberto DO is Attending Physician. jh7 09:20 Triage completed. tw2 09:22 Arm band placed on. tw2 09:28 Ciarra José, RN is Primary Nurse. iw 09:30 Patient has correct armband on for positive identification. iw 10:00 Assist provider with I \T\ D:. iw 10:45 IV discontinued, intact, bleeding controlled, No redness/swelling at site. Pressure iw dressing applied. Administered Medications: 10: Drug: NS 0.9% 1000 ml Route: IV; Rate: 1 bolus; Site: left antecubital; iw 10:45 Follow up: IV Status: Completed infusion iw 10: Drug: morphine 4 mg Route: IVP; Infused Over: 4 mins; Site: left antecubital; iw 10:45 Follow up: Response: No adverse reaction; Pain is decreased iw 10: Drug: Phenergan (promethazine) 12.5 mg Route: IVP; Site: left antecubital; iw 10:45 Follow up: Response: No adverse reaction iw 10: Drug: Clindamycin 900 mg Route: IVPB; Infused Over: 30 mins; Site: left antecubital; iw 10:45 Follow up: IV Status: Completed infusion iw 10:55 Drug: Lidocaine (1 %) 5 mg Route: Infiltration; iw Medication: 09:30 VIS not applicable for this client. iw Outcome: 10:42 Discharge ordered by MD. hansen 10:54 Discharged to home iw 10:54 Condition: good 10:54 Discharge instructions given to patient, Instructed on discharge instructions, follow iw up and referral plans. medication usage, Demonstrated understanding of instructions, follow-up care, medications, Prescriptions given X 2. 10:55 Patient left the ED. iw Signatures: Charissa Moe Irene, RN RN iw Coty Dunaway RN RN tw2 Patience Campbell, [employer] Trish
--- NOTE | 2021-10-25 10:43 | EDPHYS ---
Physician Documentation [facility] Name: Deann Avitia Age: 51 yrs Sex: Female : 1970 Arrival Date: 10/25/2021 Time: 09:14 Bed 10 Private MD: ED Physician Roman Alberto HPI: 10/25 09:20 This 51 yrs old Female presents to ER via Ambulatory with complaints of Abscess. jh7 09:20 The patient presents with an abscess of the right lower quadrant. Description: The jh7 affected area is small, localized, erythematous, Tender. Onset: The symptoms/episode began/occurred 1 day(s) ago. Associated signs and symptoms: Pertinent positives: drainage, erythema, nausea, Pertinent negatives: fever, headache, shortness of breath, vomiting. Patient presents for possible spider bite starting yesterday. The patient states that she woke up with a bruise and throughout the day the area began to swell. States that the abscess is on the right lower quadrant of her abdomen, and it is tender to palpation. History of fibromyalgia.. AIRPORT GUIDE: :23 LMP N/A - Hysterectomy tw2 Historical: - Allergies: 09:20 GABAPENTIN; tw2 09:20 Lyrica; tw2 09:20 Naproxen; tw2 09:20 Toradol; tw2 09:20 tramadol; tw2 09:20 Ultram; tw2 - Home Meds: 09:20 Zoloft 100 mg Oral tab 1 tab once daily [Active]; Wellbutrin XL 300 mg Oral Tb24 1 tab tw2 once daily [Active]; tizanidine 4 mg Oral cap twice a day [Active]; Mobic 15 mg Oral tab 1 tab once daily [Active]; Lamictal 200 mg Oral tab 1 tab once daily [Active]; Morphabond ER every 8 hours [Active]; Valium 4 mg 2 times a day Oral tab [Active]; - PMHx: 09:20 Chronic pain; Fibromyalgia; tw2 - PSHx: 09:20 hysterectomy; tw2 - Immunization history:: Adult Immunizations. - Social history:: Smoking status: . ROS: 09:20 Constitutional: Negative for fever, chills, and weight loss, ENT: Negative for injury, jh7 pain, and discharge, Neck: Negative for injury, pain, and swelling. 09:20 Cardiovascular: Negative for chest pain, palpitations, and edema, Respiratory: Negative for shortness of breath, cough, wheezing, and pleuritic chest pain, Back: Negative for injury and pain, Neuro: Negative for headache, weakness, numbness, tingling, and seizure. 09:20 Abdomen/GI: Positive for nausea, Negative for abdominal pain, vomiting, diarrhea. 09:20 Skin: Positive for abscess, Negative for cellulitis, laceration(s). 09:20 All other systems are negative. Exam: 09:20 Constitutional: This is a well developed, well nourished patient who is awake, alert, jh7 and in no acute distress. Neck: Trachea midline, no thyromegaly or masses palpated, and no cervical lymphadenopathy. Supple, full range of motion without nuchal rigidity, or vertebral point tenderness. No Meningismus. Cardiovascular: Regular rate and rhythm with a normal S1 and S2. No gallops, murmurs, or rubs. Normal PMI, no JVD. No pulse deficits. Respiratory: Lungs have equal breath sounds bilaterally, clear to auscultation and percussion. No rales, rhonchi or wheezes noted. No increased work of breathing, no retractions or nasal flaring. Abdomen/GI: Soft, non-tender, with normal bowel sounds. No distension or tympany. No guarding or rebound. No evidence of tenderness throughout. Back: No spinal tenderness. No costovertebral tenderness. Full range of motion. Neuro: Awake and alert, GCS 15, oriented to person, place, time, and situation. Motor strength 5/5 in all extremities. Sensory grossly intact. Normal gait. 09:20 Skin: abscess, that is small, approximately 1 cm(s), of the right lower quadrant, 1 cm abscess in the right lower quadrant of the abdomen it is very superficial and has minimal swelling. There is scant purulent drainage in the center. The area is tender to palpation with minimal induration. There is surrounding bruising present.. Vital Signs: 09:17 BP 145 / 100; Pulse 103; Resp 18; Temp 98.2(O); Pulse Ox 99% on R/A; Weight 86.64 kg tw2 (R); Height 5 ft. 2 in. (157.48 cm) (R); Pain 7/10; 09:17 Body Mass Index 34.93 (86.64 kg, 157.48 cm) tw2 Procedures: 10:25 I \T\ D: Incision and drainage was performed for an abscess of the right abdomen Prepped [facility] with Betadine, Anesthetized with 3 ml's 1% Lidocaine. Incised with #11 blade. Drained small amount purulent fluid. bloody fluid. Dressing: sterile 4x4 gauze, the patient tolerated the procedure well. MDM: 09:17 Patient medically screened. [facility] 10:49 Differential diagnosis: abscess, cellulitis, insect bite. Data reviewed: vital signs, [facility] nurses notes. Data interpreted: Pulse oximetry: is 99 %. Counseling: I had a detailed discussion with the patient and/or guardian regarding: the historical points, exam findings, and any diagnostic results supporting the discharge/admit diagnosis, to return to the emergency department if symptoms worsen or persist or if there are any questions or concerns that arise at home. Response to treatment: the patient's symptoms have markedly improved after treatment. Special discussion:. ED course: The patient remained stable throughout the ER visit. I discussed abscess care at home, including warm compresses, taking antibiotics as directed, and warm Epsom salt soaks. If her symptoms worsen, or any new concerning symptoms develop, she may return to the ER for further eval.. 10/25 09:24 Order name: I\T\D Setup; Complete Time: 10:31 [facility] 10/25 10:25 Order name: Wound dressing; Complete Time: 10:55 [facility] Administered Medications: 10:09 Drug: NS 0.9% 1000 ml Route: IV; Rate: 1 bolus; Site: left antecubital; iw 10:45 Follow up: IV Status: Completed infusion iw 10: Drug: morphine 4 mg Route: IVP; Infused Over: 4 mins; Site: left antecubital; iw 10:45 Follow up: Response: No adverse reaction; Pain is decreased iw 10: Drug: Phenergan (promethazine) 12.5 mg Route: IVP; Site: left antecubital; iw 10:45 Follow up: Response: No adverse reaction iw 10: Drug: Clindamycin 900 mg Route: IVPB; Infused Over: 30 mins; Site: left antecubital; iw 10:45 Follow up: IV Status: Completed infusion iw 10:55 Drug: Lidocaine (1 %) 5 mg Route: Infiltration; iw Disposition: 17:13 Co-signature as Attending Physician, Roman Alberto DO I agree with the assessment and ms3 plan of care. Disposition Summary: 10/25/21 10:42 Discharge Ordered Location: Home [facility] Problem: new [facility] Symptoms: have improved [facility] Condition: Stable [facility] Diagnosis - Cutaneous abscess of abdominal wall [facility] Followup: [facility] - With: Private Physician - When: 2 - 3 days - Reason: Recheck today's complaints Discharge Instructions: - Discharge Summary Sheet [facility] - Skin Abscess 7 - Incision and Drainage 7 - Incision and Drainage, Care After jh7 Forms: - Medication Reconciliation Form [facility] - Thank You Letter [facility] - Antibiotic Education [facility] Prescriptions: - mupirocin 2 % Topical ointment - apply 1 inch by TOPICAL route 3 times per day for 10 days; 1 tube; Refills: 0, jh7 Product Selection Permitted - Bactrim DS 800-160 mg Oral Tablet - take 1 tablet by ORAL route every 12 hours for 10 days; 20 tablet; Refills: 0, jh7 Product Selection Permitted Signatures: Ciarra José, RN RN iw Coty Dunaway RN RN tw2 Roman Alberto DO DO ms3 Patience Campbell FNP [employer] [facility]
[2021-10-25 11:16] VITALS: BP 145/100; TEMP 98.2; O2SAT 99
== END 2021-10-25 10:55 | disposition home or self-care (01) ==
LOC: ER 09:11
PROC: 0H97XZZ Drainage of Abdomen Skin, External Approach (ICD-10-PCS; principal; 2021-10-25)
DX: L02.211 Cutaneous abscess of abdominal wall (principal); G89.29 Other chronic pain; Z88.5 Allergy status to narcotic agent; Z88.8 Allergy status to other drugs, medicaments and biological substances
CPT/HCPCS: 10060; J2550; J7030

== ENCOUNTER 2022-04-28 18:16 | Emergency (ER) | payer OTHER ==
--- OUTSIDE RECORDS SUMMARY | 2022-04-28 18:20 | XMS REPORT | Continuity of Care Document ---
:1970 Author Organization [facility] t Address [address] [facility] [address] [place] [address] Care Team Providers Name Role Phone Elizabethmoriah Talia Attending Clinician Unavailable Fidencio Cote Attending Clinician Unavailable JEANCARLOS CABRERA Attending Clinician Unavailable PEREZ IZQUIERDO Attending Clinician Unavailable URIEL PUCKETT Attending Clinician Unavailable Lab, Adc Fam Pob I Attending Clinician Unavailable GUANACO MONTERO Attending Clinician Unavailable UNKNOWN, ATTENDING Attending Clinician Unavailable FORTINO COLE Attending Clinician Unavailable Doctor Unassigned, [place] Attending Clinician Unavailable EVELYNE DAI Attending Clinician Unavailable BENNIE SANDOVAL Attending Clinician Unavailable Nadir Perez Attending Clinician Unavailable Darinel Pina Attending Clinician Jovon Springer Attending Clinician Talia Verdugo Admitting Clinician Unavailable Physician, No Primary or Family Admitting Clinician Unavaila ble NONE, NONE Admitting Clinician Unavailable Fidencio Cote Admitting Clinician Unavailable Payers Payer Name Policy Type Policy Number Effective Date Expiration Date Mela tomas [facility] [id number] 2012 00:00:00 Problems Condition Condition Condition Status Onset Resolution Last Treating Co mments Source Name Details Category Date Date Treatment Clinician Date ROTATOR ROTATOR Diagnosis Active 2012-06-12 Memoria CUFF TEAR CUFF TEAR 06-04 05:28:00 l Active 00:00: [place] 06/04/2012 00 [facility] Fibromyalg Problem Resolve 2012-06-14 Memoria ia Fibromyalg d 20:59:52 l ia [place] Resolved Problem 06/14/2012 [facility] Malignant Malignant Problem Active 2013-09-24 Memoria tumor of tumor of 23:26:27 l urinary urinary [place] bladder bladder (disorder) (disorder) Active Problem 09/24/2013 APARNA Raman, Jose Ramon Woody [facility] depression depressio Problem Active 2013-09-24 Memoria (Confirmed n(Confirme 23:26:27 l ) d) Active [place] Problem 09/24/2013 APARNA Raman, CAMRYN VazquezM H [facility] weakness weakness Problem Active 2013-09-24 Memoria both both 23:26:27 l legs(Confi legs(Confi He rmann rmed) rmed) Active Problem 09/24/2013 APARNA Raman, CAMRYN Vazquez,M [facility] Bladder Bladder Problem Active 2012-06-14 Ma moria cancer cancer 20:59:52 l Active [place] Problem 06/14/2012 [facility] depression depressio Problem Active 2012-06-14 Memoria n Active 20:59:52 l Problem [place] 06/14/2012 [facility] weakness weakness Problem Active 2012-06-14 Memoria both legs both legs 20:59:52 l Active [place] Problem 06/14/2012 [facility] Fibromyosi Fibromyos Problem Resolve 2013-09-24 Memoria tis itis d 23:26:27 l (disorder) (disorder) He rmann Resolved Problem 09/24/2013 CAMRYN Raman, CAMRYN Vazquez,M CAMRY[facility] Allergies, Adverse Reactions, Alerts Allergy Allergy Status Severity Reaction(s) Onset Inactive Treating Comm ents Source Name Type Date Date Clinician gabapent DA Active SV SWELLING 2020-02 [facility] in 03-21 Clear 00:00: Li 00 [facility] ondanset DA Active [place] doesnt work 2020-02 [facility] rj 03-21 Clear 00:00: Li 00 [facility] ketorola DA Active SV HALLUCINATIO 2020-02 HC A c NS 03-21 Clear 00:00: Li [facility] pregabal DA Active SV SWELLING 2020-02 [facility] in 03-21 Clear 00:00: Li 00 [facility] tramadol DA Active SV ITCHING/ 2020-02 [facility] RASH 03-21 Clear 00:00: Li [facility] tramadol DA Active SV 2020-0 [facility] 04-01 [facility] gabapent DA Active SV 2020-0 [facility] in 04-01 00:00: [facility] ond[place]et [place] Active [place] 2020-0 [facility] rj 04-01 00:00: Orthope 00 [...] 00 [facility] ond[place]et [place] Active [place] doesnt work 2020- [facility] rj 04-01 [place] 00:00: [facility] ketorola DA Active SV HALLUCINATIO 2020-0 HC A c NS 04-01 [place] 00:00: [facility] pregabal DA Active SV SWELLING 2020-0 [facility] in 04-01 00:00: [facility]ope 00 [facility] tramadol DA Active SV 2020- [facility] 0-02 Clear 00:00: Li 00 [facility] gabapent DA Active SV 2020- [facility] in 0-02 Clear 00:00: Li [facility] ondanset DA Active [place] 2020- [facility] rj 0-02 Clear 00:00: Li 00 [facility] ketorola DA Active SV 2020- [facility] c 0-02 Clear 00:00: Li 00 [facility] pregabal DA Active SV 2020- [facility] in 0-02 Clear 00:00: Li 00 [facility] tramadol DA Active SV ITCHING/ 2019- [facility] RASH 0-02 Clear 00:00: Li [facility] gabapent DA Active SV SWELLING 2019- [facility] in 0-02 Clear 00:00: Li [facility] ondanset DA Active [place] doesnt work 2019-02 [facility] rj 0-02 Clear 00:00: Li [facility] ketorola DA Active SV HALLUCINATIO 2019-02 HC A c NS 002 Clear 00:00: Li [facility] pregabal DA Active SV SWELLING 2019-02 [facility] in 0-02 Clear 00:00: Li [facility] ondanset DA Active [place] 2019-0 [facility] rj 11-15 [place] 00:00: [facility] 00 [facility] ondanset DA Active [place] doesnt work 2019-0 [facility] rj 11-15 [place] 00:00: [facility] 00 [facility] tramadol DA Active SV 2019-0 [facility] 07-29 [place] 00:00: [facility] 00 [facility] gabapent [...] Active SV SWELLING 2019-0 [facility] in 07-29 [place] 00:00: [facility] 00 [facility] ketorola DA Active SV HALLUCINATIO 2019-0 HC A c NS 07-29 00:00: [facility] 00 [facility] pregabal DA Active SV SWELLING [facility] in 07-29 [place] 00:00: [facility] 00 [facility] NITROFUR DRUG Active [facility] ANTOIN 08-27 ity of MONOHYD/ 00:00: [place] M-CRYST 00 [facility] GABAPENT DRUG Active Swelling Univer s IN INGREDI 2 ity of 00:00: [place] 00 [facility] KETOROLA DRUG Active Hallucinates Un rufino C INGREDI 09-23 ity of 00:00: [place] 00 [facility] theophyl DA Active U [facility] line 3- [place] 00:00: [facility] 00 [facility] guaifene DA Active U [facility] sin 05-20 [place] 00:00: [facility] 00 [facility] theophyl DA Active U UNK [facility] line 3- [place] 00:00: [facility] 00 [facility] guaifene DA Active U UNK [facility] sin 05-20 [place] 00:00: [facility] 00 [facility] NAPROXEN DRUG Active N/V Univers INGREDI 9-10 ity of 00:00: [place] 00 [facility] TRAMADOL DRUG Active ITCHING Univers INGREDI 9-10 ity of 00:00: [place] 00 [facility] Ultram Ultram Active Memoria l Almine naproxen naproxen Active Memori a l [place] NKFA NKFA Active Memoria l [place] Quibron Quibron Active Memoria l [place] Toradol Toradol Active Memoria l [place] Medications Ordered Filled Start Stop Current Ordering Indication Dosage Frequency Signature Comments Components Source Medication Medication Date Date Medication? Clinician (SIG) Name Name Alejandro Zahra Hamilton 2 tab, Memor ia 7.5/325 417 Mike Route: PO, l oral tablet 17:53: Drug Form: [place] 00 TAB, Dosing Weight 79, kg, ONCE, Start date: 06/12/12 12:53:00, Stop date: 06/12/12 12:53:00 [place] Zahra Hamilton 2 tab, Memor ia 7.5/325 4-17 [place] Route: PO, l oral tablet 17:53: Drug Form: [place] 00 TAB, Dosing Weight 79, kg, ONCE, Start date: 06/12/12 12:53:00, Stop date: 06/12/12 12:53:00 morphine No Andreas Alfonso 3 mg, Mem oria Sulfate 4-17 Mike Route: l 16:42: IVP, ONCE, [place] Dosing Weight 79, kg, Start date: 06/12/12 11:42:00, Stop date: 06/12/12 11:42:00 morphine No Andreas Alfonso 3 mg, Mem oria Sulfate 4-17 Mike Route: l 16:42: IVP, ONCE, [place] 00 Dosing Weight 79, kg, Start date: 06/12/12 11:42:00, Stop date: 06/12/12 11:42:00 Zofran No Andreas Alfonso 4 mg, Memor ia 4-17 Mike Route: l 16:36: IVP, Drug form: INJ, ONCE, Dosing Weight 79, kg, Start date: 06/12/12 11:36:00, Stop date: 06/12/12 11:36:00 acetaminoph No Andreas Alfonso 1,000 mg, Memoria en 10 mg/mL - Mike Route: IV, l intravenous 16:36: Drug form: [place] solution 00 INJ, ONCE, Dosing Weight 79, [...] Alfonso 1,000 mg, Memoria en 10 mg/mL -17 Mike Route: IV, l intravenous 16:36: Drug form: [place] solution 00 INJ, ONCE, Dosing Weight 79, [...] Route: IV, l intravenous 16:30: Drug form: [place] solution 00 INJ, ONCE, Dosing Weight 79, kg, For > or = 50 kg, Start date: 06/12/12 11:30:00, Stop date: 06/12/12 11:30:00 Zofran Yes Andreas Alfonso 4 mg, 1 Mem oria 4-17 Mike tab, l 16:30: Route: PO, Drug form: [...] Route: IV, l intravenous 16:30: Drug form: [place] solution 00 INJ, ONCE, Dosing Weight 79, kg, For > or = 50 kg, Start date: 06/12/12 11:30:00, Stop date: 06/12/12 11:30:00 Vital Signs Vital Name Observation Time Observation Value Comments Source Systolic (mm Hg) 2012-06-12 18:00:00 Azam rial [place] Diastolic (mm Hg) 2012-06-12 18:00:00 Mem orial [place] Respitory Rate 2012-06-12 18:00:00 Memori al [place] Diastolic (mm Hg) 2012-06-12 17:45:00 Mem orial [place] Systolic (mm Hg) 2012-06-12 17:45:00 Azam rial [place] Respitory Rate 2012-06-12 17:45:00 Memori al [place] Diastolic (mm Hg) 2012-06-12 17:30:00 Mem orial [place] Respitory Rate 2012-06-12 17:30:00 Memori al [place] Systolic (mm Hg) 2012-06-12 17:30:00 Azam rial [place] Temperature Oral (F) 2012-06-12 11:07:00 [facility] Height 2012-06-06 14:33:00 157.48 [facility] Weight 2012-06-06 14:33:00 [facility] L[place] Procedures Procedure Date / Time Performing Clinician Source Performed Appendectomy <sup>1</sup> Demetrius Horn Arthroscopy of knee Leftin, Mike barrientos <sup>3</sup> Arthroscopy of shoulder Leftin, Mike Raman <sup>4</sup> Bilateral tubal ligation Nayeli l [place] <sup>5</sup> Biopsy of bladder Mary Antonio nn <sup>6</sup> Cholecystectomy Mary Raman <sup>7</sup> CTR - Carpal tunnel release Azam rial [place] <sup>8</sup> Excision of cyst Leftin, Mike Clark n <sup>9</sup> Hysterectomy <sup>10</sup> Boogie iatoy Raman Surgical procedures Leftin, Mike barrientos <sup>11</sup> Encounters Start End Encounter Admission Attending Care Care Encounter Source Date/Time Date/Time Type Type Clinicians Facility Department ID 2021-02-04 Inpatient DANIELA Verdugo [facility] DAYS [id number] [facility] 09:35:00 Tomgailo 34189 [place] [facility] 2020-12-30 Inpatient DANIELA Verdugo [facility] RADI [id number] [facility] 13:00:00 Brooko 04247 [place] [facility] 2020-05-21 Inpatient DANIELA Cote [facility] RADI [id number] [facility] 13:30:00 Fidencio 35431 [place] [facility] 2020-05-14 Inpatient DANIELA Cote [facility] RADI [id number] [facility] 10:30:00 Fidencio 63674 [place] [facility] 2020-04-07 Inpatient DANIELA Cote [facility] DAYS [id number] [facility] 12:30:00 Fidencio 13627 [place] [facility] 2019-12-28 Inpatient DANIELA Cote [facility] SURG [id number] [facility] 11:44:00 Fidencio 97549 [place] [facility] 2019-09-30 Inpatient DANIELA Cote [facility] RADI [id number] [facility] 11:30:00 Fidencio 67667 [place] [facility] 2019-09-15 Inpatient DANIELA Cote [facility] RADI [id number] [facility] 11:30:00 Fidencio 71949 [place] [facility] 2019-09-04 Inpatient DANIELA Cote [facility] RADI [id number] [facility] 11:30:00 Fidencio 18434 [place] [facility] 2019-08-13 Inpatient DANIELA Cote [facility] RADI [id number] [facility] 12:15:00 Fidencio 46358 [place] [facility] 2021-01-26 2021-01-26 Outpatient DANIELA Verdugo [facility] DAYS [id number] [facility] 07:46:00 07:46:00 Brooko 41749 [place] [facility] 2021-01-26 2021-01-26 Outpatient DANIELA Verdugo HCATO HCATO [id number] [facility] 07:46:00 07:46:00 Brooko 42 [place] [facility] 2021-01-19 2021-01-19 Outpatient Kartik HCACL LABO [id number] [facility] 17:02:00 17:02:00 Tomiko 27 [facility] 2021-01-19 2021-01-19 Inpatient OZZY Vo SURG [id number] [facility] 09:35:00 09:35:00 Tomiko 90714 [place] [facility] 2021-01-11 2021-01-11 Outpatient HUONG VoTO RADI [id number] 13:04:00 13:04:00 Tomiko 82363 [place] [facility] 2020-12-31 2020-12-31 Outpatient HUONG VerdugoTO RADI [id number] 12:15:00 12:15:00 Tomiko 20774 [place] [facility] 2020-12-30 2020-12-30 Outpatient HUONG VoTO RADI [id number] [facility] 13:00:00 13:00:00 Tomiko 01 [place] [facility] 2020-07-29 2020-07-29 Outpatient Lexi CABRERA [facility] [id number] Univers 11:00:00 11:00:00 JEANCARLOS [facility] 2020-07-23 2020-07-23 Outpatient Lexi CABRERA [facility] [id number] Univers 00:00:00 00:00:00 JEANCARLOS [facility] 2020-07-20 2020-07-20 Outpatient Lexi CABRERA [facility] [id number] Univers 00:00:00 00:00:00 JEANCARLOS [facility] 2020-07-08 2020-07-08 Outpatient Lexi CABRERA [facility] [id number] Univers 10:30:00 10:30:00 JEANCARLOS [facility] 2020-07-06 2020-07-06 Outpatient Lexi IZQUIERDO [facility] [id number] Univers 15:00:00 15:00:00 PEREZ [facility] 2020-06-21 2020-06-21 Outpatient Lexi PUCKETT [facility] [id number] Univers 09:00:00 09:00:00 URIEL man[facility] 2020-05-05 2020-05-05 Outpatient HUONG CoteTO HCATO [id number] [facility] 10:00:00 10:00:00 Fidencio 01153 [place] [facility] 2020-04-01 2020-04-02 Inpatient OZZY Workman SURG [id number] [facility] 05:49:00 14:06:00 Fidencio 78603 [place] [facility] 2020-03-27 2020-03-27 Laboratory Lab, [facility] [id number] 12:45:43 13:05:43 Only Fam [facility] [id number] [place] [id number] Professio [phone] nal 0[address] 2020-03-27 2020-03-27 Outpatient R KYLAH [facility] [id number] Univers 13:00:00 13:00:00 GUANACO garcia [facility] 2020-03-26 2020-03-26 Outpatient R KYLAH [facility] [id number] Univers 17:00:00 17:00:00 GUANACO loving [facility] 2020-03-25 2020-03-25 Outpatient R UNKNOWN, [facility] [id number] Univers 17:00:00 17:00:00 ATTENDING [facility] 2020-03-15 2020-03-15 Outpatient HUONG CoteCL LABO [id number] [facility] 17:44:00 17:44:00 Fidencio 40 [facility] 2019-12-26 2019-12-26 Outpatient R DOUGLAS [facility] [id number] Univers 12:15:00 12:15:00 FORTINO [facility] 2019-12-26 2019-12-26 Orders Doctor RODRIGEZ [id number] 00:00:00 00:00:00 Only Unassigned, GRICELDA [id number] [place] [facility] [id number] 2019-12-18 2019-12-18 Outpatient HUONG WorkmanTO LABO [id number] [facility] 08:00:00 08:00:00 Fidencio 82147 [place] [facility] 2019-11-28 2019-11-28 Outpatient EL HUONG CoteTO LABO [id number] [facility] 08:00:00 23:59:00 Fidencio 24853 [place] [facility] 2019-11-28 2019-11-28 Outpatient HUONG CoteCL LABO [id number] [facility] 17:29:00 17:29:00 Fidencio 45 [facility] 2019-09-16 2019-09-16 Laboratory Lab, [facility] [id number] 10:00:02 10:03:40 Only Fam [facility] [id number] [place] [id number] Professio [phone] nal 044 [facility] 2019-09-16 2019-09-16 Outpatient Lexi SUHAS [facility] [id number] Univers 09:40:00 09:40:00 [facility]NE [facility] 2019-07-24 2019-07-24 Outpatient Rocael HCATO RADI [id number] [facility] 09:15:00 09:15:00 Fidencio 00227 [place] [facility] 2019-07-23 2019-07-23 Outpatient Lexi SANDOVAL [facility] [id number] Univers 09:45:00 09:45:00 BENNIE [facility] 2019-03-12 2019-03-12 Outpatient Nadir [facility] [id number] [facility] 13:00:00 13:00:00 11939 [place] [facility] 2013-09-22 2013-09-23 Outpt Diag nullFlavo [facility] [id number] Memoria 15:51:00 04:59:00 Services r Outpatient 05 l Imaging [place] Raman 2013-09-22 2013-09-23 Outpt Diag nullFlavo [facility] [id number] Memoria 15:51:00 04:59:00 Services r Outpatient 05 l Imaging [place] Raman 2013-09-22 2013-09-22 Outpatient Yovani 2.16.840. 2.16.840. 1. [id number] 10:51:00 23:59:00 , Darinel [id number] Mrak 3.615.0.1 5.0.109 64 4984-07-22 2013-09-17 Outpt Diag nullFlavo [facility] [id number] [id number] Memoria 19:03:00 04:59:00 Services r Outpatient 04 l Imaging [place] Fowler 2013-09-16 2013-09-17 Outpt Diag nullFlavo [facility] [id number] Memoria 19:03:00 04:59:00 Services r Outpatient 04 l Imaging [place] Fowler 2013-09-16 2013-09-16 Outpatient Gian Jovon 2.16.840. 2.16.840.1 . [id number] 14:03:00 23:59:00 A W [id number] 3.615.0.1 [id number] 20 2125-07-10 2013-09-05 Outpt Diag nullFlavo [facility] [id number] Memoria 15:28:00 04:59:00 Services r Outpatient 03 l Imaging - Eduardo n [facility] 2013-09-04 2013-09-05 Outpt Diag nullFlavo [facility] [id number] Memoria 15:28:00 04:59:00 Services r Outpatient 03 l Imaging - Eduardo n [facility] 2013-09-04 2013-09-04 Outpatient Gian Jovon 2.16.840. 2.16.840.1 . [id number] 10:28:00 23:59:00 A W [id number] 3.615.0.1 5.0.802 89 2387-04-17 2012-06-12 DS nullFlavo [id number] Memoria 05:19:00 13:40:[address] [place]amine 2012-06-12 2012-06-12 DS nullFlavo [id number] Memoria 05:19:00 13:40:[address] [place] Results Test Description Test Time Test Comments Results Result Comments Source Novel Coronavirus 2019 Inhouse 2021-01-20 20:53:00 Test Item Value Reference Range Interpretation Comme nts Novel Coronavirus 2019 Negative Negative Posit brenda results are indicative of the Inhouse (test code = presenc e [id number] RNA, clinical COVNONPUI) correlation wit h patient [...] for the identification of SARS-CoV-2 RNA usingthe [employer] System under th e FDA Emergency UseAuthorizatio n. The testing is performed by patrizia magallanesonneltrained in the procedures for the TagaPet000 moleculardiagno stic SARS-CoV-2 assay in vitro. Novel Coronavirus 2018 [id number] 20:52:00 Test Item Value Reference Range Interpretation [...] the Arce M2000 molecular diagnostic SARS-CoV-2 ayala y in vitro. - MRI JNT W/O CONT [id number] 16:15:00 [facility] 1970 Sex: F Patient Name: JOHNSON AVITIA Unit No: [id number] EXAMS: CPT CODE: [id number] MRI [facility] W/[place] [address] TECHNIQUE: Multiplanar multisequence MR images through the [...] ligament is most consistent with a sprain withpossible partial tear present as well. Other: A small ankle joint effusion is present. The fat within the sinus tarsi is normal. No evidence of plantar fasciitis. IMPRESSION: 1. 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 2. Torn anterior talofibular ligament as wellas sprains of the calcaneofibular and deltoid ligaments. 3. Additional chronic findings as described. at 1615 Reported and signedby: Edilberto Mckeon M.D. CC: Talia Verdugo MD Technologist: Tawana Wheeler, RT(R) Transcribed D/ (1615) Vickie [facility] NAME: JOHNSON AVITIA [address] [facility] PHYS: Talia Gupta MD : 1970 AGE: 50 SEX: F [place] [address] LOC: Y.MRI PHONE #: [phone] EXAM DATE: 01/11/2021 STATUS: REG CLI FAX #: [phone] RAD #: D/CDT PAGE 1 Signed Report Patient Name: JOHNSON AVITIA Unit No: [id number] EXAMS: CPT CODE: [id number] MRI LW JNT W/[place] [address] (Continued) Orig Print D/T: S: 01/11/2021 (1619) [place] [facility]: JOHNSON AVITIA [address] [facility] PHYS: ELIZABETHJUAN ABLERTO Man Talia Verdugo MD : 1970 AGE: 50 SEX: F [place] [address] LOC: Y.MRI PHONE #: [phone] EXAM DATE:01/11/2021 STATUS: REG CLI FAX #: [phone] RAD #: D/C DT PAGE 2 Signed Report- CT HEAD/BRAIN W/O [id number] 13:40:00 [facility] : 1970 Sex: F Patient Name: JOHNSON AVITIA Unit No: [id number] EXAMS: CPT CODE: [id number] CT HEAD/BRAIN W/O CONT 08135 DIAGNOSIS: No evidence for hematoma or fracture. COMMENT: COMPARISON: No prior exams available. Scans were performed with thin sections and reconstructions were obtained. CT radiation dose optimization is achieved for this examination by the use of a CT protocol in accordance with ACR practice standards and adherence to fruit inspector's recommendations. There is no evidence for intra or extra-axial mass lesion or fluid collection. There is mild focal frontal atrophy. The ventricular size is within normal limits. There is no evidence for mass effect or midline shift. There is no evidence forhemorrhage. at 1340 Reported and signed by: Josep Ding MD CC: Fidencio Cote MD Technologist: Kayode Matson,RT(R) CTDI: DLP: Trnscrpt: 05/21/2020 (1340) [email or web address] [facility] NAME: JOHNSON AVITIA[address] [facility] PHYS: KEVIN - Fidencio Cote : 1970 AGE: 49 SEX: F [place], [place] [address] LOC: Y.RAD PHONE #: [phone] EXAM DATE: 05/21/2020 STATUS: REG CLI FAX#: [phone] RAD #: D/C DT PAGE 1 Signed Report Patient Name: JOHNSON AVITIA Unit No: [id number] EXAMS: CPT CODE: [id number] CT HEAD/BRAIN W/O CONT 23438 (Continued) Orig Print D/T: S: 05/21/2020 (1344) [facility] NAME: JOHNSON AVITIA [address] [facility] PHYS: Fidencio Alvarado : 1970 AGE: 49 SEX: F [place], [place] [address] [id number] LOC: SHELIA PHONE #: [phone] EXAM DATE: 05/21/2020 STATUS: REG CLI FAX #: [phone] RAD #: D/C DT PAGE2 Signed Report BASIC METABOLIC [id number] 06:22:00 Test Item Value Reference Range Interpretation [...] RATE (test code = GFR) mL/mi n/1.73 [id number] Range:Healthy Adults >90 mL/min/1.73 m2 For Chronic Kidney Disease: Stage II Mild Decrease i n GFR 60-90 Stage III Moderate Decrea se in GFR 30-59 St age IV Severe Decre ase in GFR 15-29 St age V Kidney Failur e <15 CREATININE (test code 0.77 mg/dL 0.55-1.30 N = CREAT) CALCIUM (test code = 9.0 mg/dL 8.2-10.1 N CA) HGB [id number] 05:51:00 Test Item Value Reference Range Interpretation Comments HEMOGLOBIN (test code = HGB) 12.0 g/dL 12-16 N HEMATOCRIT (test code = HCT) 36.9 % 37-47 L PROTHROMBIN [id number] 09:40:00 Test Item Value Reference Range Interpretation [...] recurrent embol ism, or 3.0 - 4.5 shonna ents with mechanical pros thetic intravascular v polanco THROMBOPLASTIN TIME [id number] 09:40:00 Test Item Value Reference Range Interpretation Comments PTT ACTIVATED (test code = APTT) 26.8 secs 24.9-37.0 N BASIC METABOLIC [id number] 09:15:00 Test Item Value Reference Range Interpretation [...] RATE (test code = GFR) mL/mi n/1.73 u6Advppdsto Range:Healthy Adults >90 mL/min/1.73 m2 For Chronic Kidney Disease: Stage II Mild Decrease i n GFR 60-90 Stage III Moderate Decrea se in GFR 30-59 St age IV Severe Decre ase in GFR 15-29 St age V Kidney Failur e <15 CREATININE (test code 1.10 mg/dL 0.55-1.30 N = CREAT) CALCIUM (test code = 9.4 mg/dL 8.2-10.1 N CA) CBC W/AUTO [id number] 09:11:00 Test Item Value Reference Range Interpretation [...] 0-0 N code = NRBC) CBC W/AUTO [id number] 14:28:00 Test Item Value Reference Range Interpretation [...] 0-0 N code = NRBC) BASIC METABOLIC [id number] 17:05:00 Test Item Value Reference Range Interpretation [...] RATE (test code = GFR) mL/mi n/1.73 i6Hgrxtsfre Range:Healthy Adults >90 mL/min/1.73 m2 For Chronic Kidney Disease: Stage II Mild Decrease i n GFR 60-90 Stage III Moderate Decrea se in GFR 30-59 St age IV Severe Decre ase in GFR 15-29 St age V Kidney Failur e <15 CREATININE (test code 0.93 mg/dL 0.55-1.30 N = CREAT) CALCIUM (test code = 9.2 mg/dL 8.2-10.1 N CA) PROTHROMBIN [id number] 16:11:00 Test Item Value Reference Range Interpretation Comments PROTHROMBIN TIME 11.5 secs 10.1-12.5 N PATIENT (test code = PTP) INTERNATIONAL NORMAL 1.03 <2.0 RECOMME NDED THERAPEUTIC RATIO (test code = RANGE FOR ORAL INR) ANTICOAGULANTTR EATMENT: CONDITION INRProphylaxis of venous thrombosis in 2 .0 - 3.0 high-risk medic al or surgical patientsTreatme nt of venous thrombos is 2.0 - 3.0Prevention o f embolism 2.0 - 3.0Prevention o f recurrent embol ism, or 3.0 - 4.5 patie nts with mechanical pros thetic intravascular v polanco IS PATIENT ON ANTICOAGULANTS ? SCas Lab been notified if Patient is on Heparin Drip? NOIf Yes, orderCBC, OCCULT BLOOD, PT every other day NTHROMBOPLASTIN TIME [id number] 16:11:00 Test Item Value Reference Range Interpretation [...] code = NRBC) - MRI C-SPINE W/O [id number] 13:46:00 Patient Name: JOHNSON AVITIA Unit No: [id number] EXAMS: CPT CODE: [id number] MRI C-SPINE W/O CONT [id number] MRI OF THE CERVICAL SPINE: DIAGNOSIS: 1. [...] gradient-echo sequences are obtained of the cervical spin e. Cervical vertebrae are within normal limits in signal. The findings are as above. at 1346 Reported and signed by: Barber Vargas MD CC: Fidencio Cote MD Technologist: Tawana Wheeler, RT(R) Transcribed D/ (1346) tTONOR.GVG T [facility] NAME: JOHNSON AVITIA [address] [place] [address] PHYS: Fidencio Alvarado : 1970 AGE: 49 SEX: F [place] [address] LOC: Y.MRI PHONE #: [phone] EXAM DATE: 09/30/2019 STATUS: REG CLI FAX #: [phone] RAD #: D/C DT PAGE 1 Signed Report Patient Name: JOHNSON AVITIA Unit No: [id number] EXAMS: CPT CODE: [id number] MRI C-SPINE W/O CONT [id number] (Continued) Orig Print D/T: S: 09/30/2019 (1349) [facility] NAME: JOHNSON AVITIA [address] [place] [address] PHYS: Fidencio Alvarado : 1970 AGE: 49 SEX: F [place] [address] LOC: Y.MRI PHONE #: [phone] EXAM DATE: 09/30/2019 STATUS: REG CLI FAX #: [phone] RAD #: D/C DT PAGE 2 Signed Report- MRI L-SPINE W/O [id number] 15:01:00 Patient Name: JOHNSON AVITIA Unit No: [id number] EXAMS: CPT CODE: [id number] MRI L-SPINE W/[place]ONT 87709 DIAGNOSIS: 1. At L1-2 there is no [...] MD Technologist: ELROY JOSEPH Transcribed D/ (1501) tKRISTINL [facility] NAME: JOHNSON AVITIA [address] [facility] PHYS: Fidencio Alvarado : 1970 AGE: 48 SEX: F [place], [place] [address] LOC: Y.MRI PHONE #: [phone] EXAM DATE: 08/13/2019 STATUS: REG CLI FAX #: [phone] RAD #: D/C DT PAGE 1 Signed Report Patient Name: JOHNSON AVITIA Unit No: [id number] EXAMS: CPT CODE: [id number] MRI L-SPINE W/O CONT [id number] (Continued) Orig Print D/T: S: 08/13/2019 (1504) [facility] NAME: JOHNSON AVITIA [facility] PHYS: Fidencio Alvarado : 1970 AGE: 48 SEX: F [place] [address] LOC: Y.MRI PHONE #: [phone] EXAM DATE: 08/13/2019 STATUS: REG CLI FAX #: [phone] RAD #:D/C DT PAGE 2 Signed Report- MRI UPPER EX W/O CONT [id number] 08:30:00 Patient Name: JOHNSON AVITIA Unit No: [id number] EXAMS: CPT CODE: [id number] [place] [address] MRI OF THE LEFT THUMB DIAGNOSIS: There is a cyst in the head of the 1st metacarpal on the radial side adjacent to the attachment of the radial collateral ligament. Mildly increased T2-weighted signal in the proximal radial collateral ligament proximally consistent with a sprain withouttearing. Also noted is a small effusion or [...] Technologist: Tawana Wheeler, RT(R) Transcribed D/ (0830) tMARINA [facility] NAME: JOHNSON AVITIA [address] [place] [address] PHYS: Nadir Burnett MD : 1970 AGE: 48 SEX: F [place] [address] LOC: Y.MRI PHONE #: [phone] EXAM DATE: 03/12/2019 STATUS: DEP CLI FAX #: [phone] RAD #: D/C DT PAGE 1 Signed Report Patient Name: JOHNSON AVITIA Unit No: [id number] EXAMS: CPT CODE: [id number] [place]PP[place] W/[place] [address] (Continued) OrigPrint D/T: S: 03/13/2019 (0833) [facility] NAME: JOHNSON AVITIA [address] [facility] PHYS: Nadir Burnett MD : 1970 AGE: 48 SEX: F [place], [place] [address] LOC: Y.MRI PHONE #: [phone] EXAM DATE: 03/12/2019 STATUS: DEP CLI FAX #: [phone] RAD #: D/C DT PAGE 2 Signed Report- MRI UP JNT W/O CONT [id number] 08:47:00 Patient Name: JOHNSON AVITIA Unit No: [id number] EXAMS: CPT CODE: [id number] MRI UP JNT W/[place] [address] MR of the right shoulder without contrast TECHNIQUE: Paracoronal, parasagittal and axial multisequence images obtained. COMPARISON: None available. FINDINGS: Acromioclavicular joint: Mild degenerative changes. Rotator cuff: Jordan interstitial tear of the posterior supraspinatus inserti on measures 9 mm transversely and reaches high-grade (coronal T2 image 8). No significant tendon retraction. Infraspinatus and supraspinatus tendinosis is present. Rotator cuff musculature is normal insize and signal intensity. Long head biceps tendon: Intact. Labrum: Fluid signal within the superior labrum is complex in appearance, suspicious for a labral tear. Cartilage/ bone: No full thickness chondral defect. No acute fracture. Bone marrow signal is within normal limits. Other: No significant joint effusion. No intra-articular body. IMPRESSION: 1. High-grade interstitial tear of the posteriorsupraspinatus insertion. No retraction or muscle atrophy. 2. Probable superior labral tear. at 0847 Reported and signed by: Edilberto Mckeon M.D. CC: Osmani Bach MD Technologist: Tawana Wheeler, RT(R) Transcribed D/ (0847) [facility] NAME: JOHNSON AVITIA [address] [facility] PHYS: Osmani Nguyen MD : 1970 AGE: 47 SEX: F [place] [address] LOC: Y.MRI PHONE #: [phone] EXAM DATE: 07/06/2018 STATUS: DEP CLI FAX #: [phone] RAD #: D/C DT PAGE 1 Signed Report Patient Name: JOHNSON AVITIA Unit No: [id number] EXAMS: CPT CODE: [id number] MRI UP JNT W/[place] [id number] (Continued) Orig Print D/T: S: 07/08/2018 (0851) [facility] NAME: JOHNSON AVITIA [address] [place] [address] PHYS: Osmani Nguyen MD : 1970 AGE: 47 SEX: F [place] [address] LOC: Y.MRI PHONE #: [phone] EXAM DATE: 07/06/2018 STATUS: DEP CLI FAX #: [phone] RAD #: D/C DT PAGE 2 Signed Report
--- NOTE | 2022-04-28 18:57 | ER ---
Nurse's Notes [facility] Name: Deann Avitia Age: 51 yrs Sex: Female : 1970 Arrival Date: 04/28/2022 Time: 18:21 Bed IW3 Private MD: Samson Stubbs Diagnosis: Local infection of the skin and subcutaneous tissue, unspecified-chin Presentation: 04/28 18:38 Chief complaint: Patient states: Skin abscess on chin - pt has cuts all over arms and ld1 legs. "I don't know what has been biting me.". Coronavirus screen: At this time, the client does not indicate any symptoms associated with coronavirus-19. Ebola Screen: No symptoms or risks identified at this time. Initial Sepsis Screen: Does the patient meet any 2 criteria? No. Patient's initial sepsis screen is negative. Does the patient have a suspected source of infection? No. Patient's initial sepsis screen is negative. Risk Assessment: Do you want to hurt yourself or someone else? Patient reports no desire to harm self or others. Onset of symptoms was April 28, 2022 at 18:39. 18:38 Method Of Arrival: Ambulatory ld1 18:38 Acuity: JHONATHAN 3 ld1 Triage Assessment: 18:39 General: Appears in no apparent distress. comfortable, Behavior is calm, cooperative, ld1 appropriate for age. Pain: Denies pain. EENT: No signs and/or symptoms were reported regarding the EENT system. Neuro: Level of Consciousness is awake, alert, obeys commands, Oriented to person, place, time, situation. Cardiovascular: Capillary refill < 3 seconds Patient's skin is warm and dry. Respiratory: Airway is patent Respiratory effort is even, unlabored. GI: Abdomen is flat, non-distended. : No signs and/or symptoms were reported regarding the genitourinary system. Derm: Abscess located on neck. Historical: - Allergies: 18:39 GABAPENTIN; ld1 18:39 Lyrica; ld1 18:39 Naproxen; ld1 18:39 Toradol; ld1 18:39 tramadol; ld1 18:39 Ultram; ld1 - PMHx: 18:39 Chronic pain; Fibromyalgia; Anxiety; ld1 - PSHx: 18:39 hysterectomy; ld1 - Immunization history:: Adult Immunizations not up to date, Client reports having NOT received the Covid vaccine. - Social history:: Smoking status: Patient reports the use of cigarette tobacco products, denies chronic smoking, but will smoke occasionally, Patient/guardian denies using alcohol. Screenin:43 [facility] ED Fall Risk Assessment (Adult) History of falling in the last 3 months, lg3 including since admission No falls in past 3 months (0 pts). Abuse screen: Denies threats or abuse. Denies injuries from another. Nutritional screening: No deficits noted. Tuberculosis screening: No symptoms or risk factors identified. Vital Signs: 18:38 BP 116 / 80; Pulse 99; Resp 18; Temp 98.2(O); Pulse Ox 100% on R/A; Weight 83.91 kg; ld1 Height 5 ft. 3 in. (160.02 cm); Pain 0/10; 18:38 Body Mass Index 32.77 (83.91 kg, 160.02 cm) ld1 ED Course: 18:21 Patient arrived in ED. am2 18:22 Samson Stubbs MD is Private Physician. am2 18:25 Dheeraj Sheppard PA is PHCP. cp 18:25 Roman Alberto DO is Attending Physician. cp 18:39 Triage completed. ld1 18:39 Arm band placed on right wrist. ld1 19:43 Patient has correct armband on for positive identification. lg3 19:43 No provider procedures requiring assistance completed. Patient did not have IV access lg3 during this emergency room visit. Administered Medications: 19:42 Drug: Hydrocodone-Acetaminophen (7.5 mg-325 mg) 1 tabs Route: PO; lg3 19:43 Drug: Doxycycline 100 mg Route: PO; lg3 Medication: 19:44 VIS not applicable for this client. lg3 Outcome: 18:57 Discharge ordered by . cp 19:43 Discharged to home ambulatory. lg3 19:43 Condition: stable 19:43 Discharge instructions given to patient, Instructed on discharge instructions, follow up and referral plans. medication usage, Demonstrated understanding of instructions, follow-up care, medications, Prescriptions given X 1. 19:45 Patient left the ED. lg3 Signatures: Dheeraj Sheppard PA PA Rema Villalobos am2 Nellie Evans RN RN lg3 Dibbern, Mary Anne, RN RN ld1
--- NOTE | 2022-04-28 18:57 | EDPHYS ---
Physician Documentation [facility] Name: Deann Avtiia Age: 51 yrs Sex: Female : 1970 Arrival Date: 04/28/2022 Time: 18:21 Bed IW3 Private MD: Samson Stubbs ED Physician Roman Alberto HPI: 04/28 18:45 This 51 yrs old Female presents to ER via Ambulatory with complaints of Skin Problem - cp under chin. 18:45 The patient presents with cellulitis of the chin. cp 18:45 Description: swollen. Onset: The symptoms/episode began/occurred 2 day(s) ago. Possible cp cause(s): spider bite. Associated signs and symptoms: Pertinent negatives: discharge, drainage, fever. Patient reports attempting to drain area by squeezing. Noticed small amount discharge. Historical: - Allergies: 18:39 GABAPENTIN; ld1 18:39 Lyrica; ld1 18:39 Naproxen; ld1 18:39 Toradol; ld1 18:39 tramadol; ld1 18:39 Ultram; ld1 - PMHx: 18:39 Chronic pain; Fibromyalgia; Anxiety; ld1 - PSHx: 18:39 hysterectomy; ld1 - Immunization history:: Adult Immunizations not up to date, Client reports having NOT received the Covid vaccine. - Social history:: Smoking status: Patient reports the use of cigarette tobacco products, denies chronic smoking, but will smoke occasionally, Patient/guardian denies using alcohol. ROS: 18:50 Constitutional: Negative for body aches, chills, fever, poor PO intake. cp 18:50 Cardiovascular: Negative for chest pain, palpitations. cp 18:50 Respiratory: Negative for cough, shortness of breath, wheezing. 18:50 Abdomen/GI: Negative for vomiting, diarrhea, constipation. 18:50 Skin: Positive for erythema, swelling, of the chin. 18:50 All other systems are negative. Exam: 18:54 Constitutional: The patient appears in no acute distress, alert, awake, non-toxic, well cp developed, well nourished. 18:54 Head/face: Noted is erythema, that is mild, of the chin, swelling, that is mild, of the chin, tenderness, that is moderate, of the chin. 18:54 Eyes: Periorbital structures: appear normal, Conjunctiva: normal, no exudate, no injection, Sclera: no appreciated abnormality, Lids and lashes: appear normal, bilaterally. 18:54 ENT: External ear(s): are unremarkable, Nose: is normal, Mouth: Lips: moist, Oral mucosa: pink and intact, moist, Posterior pharynx: Airway: no evidence of obstruction, patent. 18:54 Neck: ROM/movement: is normal, is supple, without pain, no range of motions limitations. 18:54 Chest/axilla: Inspection: normal. 18:54 Cardiovascular: Rate: normal. 18:54 Respiratory: the patient does not display signs of respiratory distress, Respirations: normal. Vital Signs: 18:38 BP 116 / 80; Pulse 99; Resp 18; Temp 98.2(O); Pulse Ox 100% on R/A; Weight 83.91 kg; ld1 Height 5 ft. 3 in. (160.02 cm); Pain 0/10; 18:38 Body Mass Index 32.77 (83.91 kg, 160.02 cm) ld1 MDM: 18:41 Patient medically screened. cp 18:55 Differential diagnosis: abscess, cellulitis, insect bite. Data reviewed: vital signs, cp nurses notes, and as a result, I will discharge patient. 18:57 I considered the following discharge prescriptions or medication management in the cp emergency department Medications were administered in the Emergency Department. See MAR. 18:57 Counseling: I had a detailed discussion with the patient and/or guardian regarding: the cp historical points, exam findings, and any diagnostic results supporting the discharge/admit diagnosis, to return to the emergency department if symptoms worsen or persist or if there are any questions or concerns that arise at home. Administered Medications: 19:42 Drug: Hydrocodone-Acetaminophen (7.5 mg-325 mg) 1 tabs Route: PO; lg3 19:43 Drug: Doxycycline 100 mg Route: PO; lg3 Disposition: 18:51 Co-signature as Attending Physician, Roman Alberto DO I was immediately available on-site ms3 in the Emergency Department for consultation in the care of the patient. Disposition Summary: 04/28/22 18:57 Discharge Ordered Location: Home cp Problem: new cp Symptoms: have improved cp Condition: Stable cp Diagnosis - Local infection of the skin and subcutaneous tissue, unspecified - chin cp Followup: cp - With: Private Physician - When: 2 - 3 days - Reason: Recheck today's complaints Discharge Instructions: - Discharge Summary Sheet cp - Cellulitis, Adult cp Forms: - Medication Reconciliation Form cp - Thank You Letter cp - Antibiotic Education cp - Prescription Opioid Use cp Prescriptions: - Doxycycline Hyclate 100 mg Oral Tablet - take 1 tablet by ORAL route every 12 hours; 20 tablet; Refills: 0, Product cp Selection Permitted Signatures: Dheeraj Sheppard PA PA cp Gibson, Lacie, RN RN lg3 Roman Alberto DO DO ms3 Mary Anne Antonio RN RN ld1
[2022-04-28] MEDS ORDERED: DOXYCYCLINE 100 MG CAP PO ONE (19:45)
[2022-04-28] MEDS ORDERED: HYDROCODONE/APAP 7.5/325 MG TAB ONE (19:45)
[2022-04-28 19:59] VITALS: BP 116/80; TEMP 98.2; O2SAT 100
== END 2022-04-28 19:45 | disposition home or self-care (01) ==
LOC: ER 18:16
DX: L03.211 Cellulitis of face (principal); F17.210 Nicotine dependence, cigarettes, uncomplicated; Z88.5 Allergy status to narcotic agent; Z88.8 Allergy status to other drugs, medicaments and biological substances
CPT/HCPCS: 99283